=== PATIENT | female | born 1935 | race African-American/Black ===

== ENCOUNTER 2021-05-25 08:26 | Inpatient (IN) | payer OTHER, MEDICAID ==
[~2021-05-25] VITALS: Ht 157.5 cm; Wt 82.7 kg
[~2021-05-25 08:26] MED LIST: AMLO2.5T5 PO; CARV12.511 PO; LOSA100T14 PO; METF500T16 PO; MIRT-7 PO; SERT100T PO
[2021-05-25 09:28] LABS: BASO % 1 % (0-3); EOS # 0.3 x10^3/uL (0.0-0.7); EOS % 4 % (0-3); HEMATOCRIT 44.1 % (36.0-47.0); HEMOGLOBIN 13.9 g/dL (12.0-15.5); LYMPH # 0.9 x10^3/uL (1.0-4.8); LYMPH % 14 % (24-48); MEAN CORPUSCULAR HEMOGLOBIN 30 pg (25-35); MEAN CORPUSCULAR HGB CONC 32 g/dL (31-37); MEAN CORPUSCULAR VOLUME 94 fL (79-100); MONO # 0.6 x10^3/uL (0.0-1.1); MONO % 9 % (0-9); NEUT # 4.7 x10^3/uL (1.8-7.7); NEUT % 72 % (31-73); PLATELET COUNT 146 x10^3/uL (140-400); RED BLOOD COUNT 4.68 x10^6/uL (3.50-5.40); RED CELL DISTRIBUTION WIDTH 15.8 % (11.5-14.5); WHITE BLOOD COUNT 6.5 x10^3/uL (4.0-11.0)
--- NOTE | 2021-05-25 09:52 | RAD ---
EXAM: Chest, single view. HISTORY: Short of breath. COMPARISON: 02/20/2018. FINDINGS: A frontal view of the chest is obtained. There is slight diffuse increased interstitial opa city. There is no consolidation, pleural effusion or pneumothorax. There is a stable cardiac silhouet te and cardiac pacemaker defibrillator. IMPRESSION: Slight diffuse increased interstitial opacity suggesting trace congestion. Electronically signed by: Monica Weiss MD (05/25/2021 9:50 AM) [id number]
[2021-05-25 09:53] LABS: CALCIUM 8.8 mg/dL (8.5-10.1); CREATININE 0.9 mg/dL (0.6-1.0); GFR 71.8; POTASSIUM 4.6 mmol/L (3.5-5.1)
--- NOTE | 2021-05-25 09:53 | RAD ---
EXAM: Left knee, 4 views. HISTORY: Pain. COMPARISON: None. FINDINGS: 4 views of the left knee are obtained. There is severe medial compartment joint space narro wing with subchondral sclerosis and spurring. There is bony remodeling involving the medial tibial pl ateau. There is moderate lateral and patellofemoral compartment spurring. There is genu varus. There are multiple posterior joint loose bodies. There is a small joint effusion. IMPRESSION: Severe medial compartment predominant osteoarthritis of the left knee with bony remodelin g involving the medial tibial plateau, genu varus, multiple joint loose bodies and small joint effusi on. Electronically signed by: Monica Weiss MD (05/25/2021 9:51 AM) [id number]
[2021-05-25 09:58] LABS: ALBUMIN 3.5 g/dL (3.4-5.0); MAGNESIUM 1.8 mg/dL (1.8-2.4); PHOSPHORUS 2.7 mg/dL (2.6-4.7); TOTAL BILIRUBIN 0.8 mg/dL (0.2-1.0); TOTAL PROTEIN 7.1 g/dL (6.4-8.2)
--- NOTE | 2021-05-25 09:59 | RAD ---
CT Head without contrast 05/25/2021 9:22 AM Indication: Reason: Fall Comparison: None Findings: No intracranial hemorrhage is seen. No evidence of acute territorial infarct is seen. Note that CT is limited in sensitivity for acute ischemia. Age-related atrophic changes are noted. Ther e is patchy periventricular and deep white matter hypoattenuation which is nonspecific, but most comm only relates to chronic small vessel disease. No abnormal extra axial fluid collection is identified . No mass effect or midline shift is seen. No acute osseous abnormalities are seen. Impression: 1. No acute intracranial process identified 2. Age-related atrophy, and evidence of chronic small vessel disease as described CT cervical spine without contrast. 05/25/2021 9:22 AM Indication:Reason: Fall Comparison Study: None Technique: Multidetector CT imaging of the cervical spine was obtained without administration of cont rast. Findings: There is no evidence of acute fracture or alignment abnormality of the cervical spine.. Lashell tebral body heights are maintained. Disc space narrowing is seen most prominently at C3-C4 and C4-C5. The craniocervical junction and atlantoaxial articulation appear intact. There is no prevertebral so ft tissue swelling. Hypodense mass in the left thyroid gland which is partially visualized. Impression: 1.No evidence of acute fracture or alignment abnormality of the cervical spine 2. Partially visualized hypodense mass, left thyroid gland. Follow-up ultrasound recommended 3. Degenerative changes of cervical spine noted. CT DOSING PQRS STATEMENT: One or more of the following individualized dose reduction techniques were utilized for this examinat ion: 1. Automated exposure control 2. Adjustment of the mA and/or kV according to patient size 3. Use of iterative reconstruction technique Electronically signed by: Homero Madrid MD (05/25/2021 9:56 AM) [id number]
--- NOTE | 2021-05-25 10:12 | EKG ---
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
--- NOTE | 2021-05-25 10:13 | PHYS DOC ---
Past Medical History Past Medical History: Diabetes-Type II, High Cholesterol, Hypertension Additional Past Medical Histor: unable to obtain from patient Past Surgical History: Other Additional Past Surgical Histo: unable to obtain Smoking Status: Unknown if ever smoked Alcohol Use: None Drug Use: None General Adult EDM: Chief Complaint: MECHANICAL FALL HPI: HPI: Patient is a 86-year-old female presents to the emergency department reporting being found on the bathroom floor by family member this morning approximately 7 AM. Patient's granddaughter at bedside reports patient lives at alone at home, reports her uncle came by and found patient lying on bathroom floor and has assumed patient fell. Patient does not recall falling, reports left knee pain only. Denies syncopal episode, denies dizziness, denies visual disturbances or visual changes, denies auditory or visual hallucinations, denies abdominal pains, denies aches pains or discomfort to other extremities, denies head pain, denies neck pain. Denies recent fever or chills, denies chest congestion, shortness of breath, nasal congestion. Patient denies other physical complaints or physical concerns. Review of Systems: Review of Systems: 14 body systems of review of systems have been reviewed. See HPI for pertinent positives and negative responses, otherwise all other systems are negative, nonpertinent or noncontributory. Constitutional: Negative except as outlined in HPI above. Skin: Negative except as outlined in HPI above. Eyes: Negative except as outlined in HPI above. HENT: Negative except as outlined in HPI above. Respiratory: Negative except as outlined in HPI above. Cardiovascular: Negative except as outlined in HPI above. GI: Negative except as outlined in HPI above. : Negative except as outlined in HPI above. Musculoskeletal: Negative except as outlined in HPI above. Integument: Negative except as outlined in HPI above. Neurologic: Negative except as outlined in HPI above. Endocrine: Negative except as outlined in HPI above. Lymphatic: Negative except as outlined in HPI above. Psychiatric: Negative except as outlined in HPI above. Heart Score: C/O Chest Pain: No Risk Factors: Risk Factors: DM, Current or recent (<one month) smoker, HTN, HLP, family history of CAD, obesity. Risk Scores: Score 0 - 3: 2.5% MACE over next 6 weeks - Discharge Home Score 4 - 6: 20.3% MACE over next 6 weeks - Admit for Clinical Observation Score 7 - 10: 72.7% MACE over next 6 weeks - Early Invasive Strategies Allergies: Allergies: Allergies Coded Allergies Type Severity Reaction Last Updated Verified Penicillins Allergy Severe HIVES 05/25/21 Yes Physical Exam: PE: Constitutional: Well developed, well nourished, no acute distress, non-toxic appearance. 86-year-old female in no apparent distress. HENT: Normocephalic, atraumatic, bilateral external ears normal, oropharynx moist, no oral exudates, nose normal. No malocclusion, no raccoon eyes, no heredia sign, bilateral TMs intact. Patient speaking in normal voice tones. No deep tissue infectious process of the oropharynx appreciated. Eyes: PERRLA, EOMI, conjunctiva normal, no discharge. Satisfactory 6 cardinal eye movements. Neck: Normal range of motion, no tenderness, supple, no stridor. No step-offs, no tenderness to adjacent muscular structures of the cervical spine. Cardiovascular:Heart rate regular rhythm, no murmur, patient is AV paced. Current rate 62 bpm, in congruence with radial pulse. Lungs & Thorax: Coarse lung sounds all lung ware to auscultation, audible coarse lung sounds appreciated, pain to palpation of anterior thorax along sternum. No bruising or ecchymosis of the anterior thorax, no subcu air appreciated, no crepitus appreciated. Old well-healed scar over the left upper anterior chest, evidence of pacemaker device underneath skin. Abdomen: Bowel sounds normal, soft, no tenderness, no masses, no pulsatile masses. No bruising, no skin discoloration of the abdomen Skin: Warm, dry, no erythema, no rash. Back: No tenderness, no CVA tenderness. Extremities: No tenderness, no cyanosis, no clubbing, ROM intact, no edema. Except for left knee, pain to palpation of the left knee, limited range of motion related to pain, dark red ecchymotic area over patellar and lateral knee skin surfaces, no swelling appreciated, no edema appreciated, distal cap refill less than 2 seconds, 2+ dorsalis pedis/posterior tibial pulses bilaterally. Neurologic: Alert and oriented X 3, normal motor function, normal sensory function, no focal deficits noted. Psychologic: Affect normal, judgement normal, mood normal. Current Patient Data: Labs: Laboratory Tests Test 05/25/21 09:00 White Blood Count 6.5 x10^3/uL Red Blood Count 4.68 x10^6/uL Hemoglobin 13.9 g/dL Hematocrit 44.1 % Mean Corpuscular Volume 94 fL Mean Corpuscular Hemoglobin 30 pg Mean Corpuscular Hemoglobin Concent 32 g/dL Red Cell Distribution Width 15.8 % Platelet Count 146 x10^3/uL Neutrophils (%) (Auto) 72 % Lymphocytes (%) (Auto) 14 % Monocytes (%) (Auto) 9 % Eosinophils (%) (Auto) 4 % Basophils (%) (Auto) 1 % Neutrophils # (Auto) 4.7 x10^3/uL Lymphocytes # (Auto) 0.9 x10^3/uL Monocytes # (Auto) 0.6 x10^3/uL Eosinophils # (Auto) 0.3 x10^3/uL Basophils # (Auto) 0.0 x10^3/uL Sodium Level 136 mmol/L Potassium Level 4.6 mmol/L Chloride Level 100 mmol/L Carbon Dioxide Level 28 mmol/L Anion Gap 8 Blood Urea Nitrogen 20 mg/dL Creatinine 0.9 mg/dL Estimated GFR (Cockcroft-Gault) 71.8 BUN/Creatinine Ratio 22 Glucose Level 94 mg/dL Lactic Acid Level 1.0 mmol/L Calcium Level 8.8 mg/dL Phosphorus Level 2.7 mg/dL Magnesium Level 1.8 mg/dL Total Bilirubin 0.8 mg/dL Aspartate Amino Transf (AST/SGOT) 44 U/L Alanine Aminotransferase (ALT/SGPT) 49 U/L Alkaline Phosphatase 95 U/L Creatine Kinase 457 U/L Creatine Kinase MB (Mass) 6.6 ng/mL Creatine Kinase MB Relative Index 1.4 % Troponin I Quantitative 0.030 ng/mL [id number]-I-Type Natriuretic Peptide 6163 pg/mL Total Protein 7.1 g/dL Albumin 3.5 g/dL Albumin/Globulin Ratio 1.0 Laboratory Tests Test 05/25/21 09:00 White Blood Count 6.5 x10^3/uL (4.0-11.0) Red Blood Count 4.68 x10^6/uL (3.50-5.40) Hemoglobin 13.9 g/dL (12.0-15.5) Hematocrit 44.1 % (36.0-47.0) Mean Corpuscular Volume 94 fL (79-100) Mean Corpuscular Hemoglobin 30 pg (25-35) Mean Corpuscular Hemoglobin Concent 32 g/dL (31-37) Red Cell Distribution Width 15.8 % (11.5-14.5) H Platelet Count 146 x10^3/uL (140-400) Neutrophils (%) (Auto) 72 % (31-73) Lymphocytes (%) (Auto) 14 % (24-48) L Monocytes (%) (Auto) 9 % (0-9) Eosinophils (%) (Auto) 4 % (0-3) H Basophils (%) (Auto) 1 % (0-3) Neutrophils # (Auto) 4.7 x10^3/uL (1.8-7.7) Lymphocytes # (Auto) 0.9 x10^3/uL (1.0-4.8) L Monocytes # (Auto) 0.6 x10^3/uL (0.0-1.1) Eosinophils # (Auto) 0.3 x10^3/uL (0.0-0.7) Basophils # (Auto) 0.0 x10^3/uL (0.0-0.2) Lactic Acid Level 1.0 mmol/L (0.4-2.0) Troponin I Quantitative 0.030 ng/mL (0.000-0.055) Laboratory Tests 05/25/21 09:00 Vital Signs: Vital Signs Date Time Temp Pulse Resp B/P (MAP) Pulse Ox O2 Delivery O2 Flow Rate FiO2 05/25/21 08:43 97.3 75 15 166/73 (104) 94 Room Air 97.3 EKG: EKG: EKG performed at 1004 by ED nursing staff shows AV paced rhythm, heart rate 60 bpm, QTc interval 0.506, no acute STEMI, no ACS, no acute ischemia appreciated, EKG interpreted by ED attending physician Dr. Varghese. Radiology/Procedures: Radiology/Procedures: PATIENT: WILLIE ORDOÑEZCOUNT: [id number] : 1935 LOCATION: ER AGE: 86 SEX: F EXAM STATUS: PRE ER ORD. PHYSICIAN: YAMINI BASSETT APRN REASON: Short of breath PROCEDURE: KNEE LEFT 4V EXAM: Left knee, 4 views. HISTORY: Pain. COMPARISON: None. FINDINGS: 4 views of the left knee are obtained. There is severe medial compartment joint space narrowing with subchondral sclerosis and spurring. There is bony remodeling involving the medial tibial plateau. There is moderate lateral and patellofemoral compartment spurring. There is genu varus. There are multiple posterior joint loose bodies. There is a small joint effusion. IMPRESSION: Severe medial compartment predominant osteoarthritis of the left knee with bony remodeling involving the medial tibial plateau, genu varus, multiple joint loose bodies and small joint effusion. Electronically signed by: Monica Weiss MD (05/25/2021 9:51 AM) [id number] REASON: Fall PROCEDURE: CT HEAD AND CERVICAL SPINE WO CT Head without contrast 05/25/2021 9:22 AM Indication: Reason: Fall Comparison: None Findings: No intracranial hemorrhage is seen. No evidence of acute territorial infarct is seen. Note that CT is limited in sensitivity for acute ischemia. Age-related atrophic changes are noted. There is patchy periventricular and deep white matter hypoattenuation which is nonspecific, but most commonly relates to chronic small vessel disease. No abnormal extra axial fluid collection is identified. No mass effect or midline shift is seen. No acute osseous abnormalities are seen. Impression: 1. No acute intracranial process identified 2. Age-related atrophy, and evidence of chronic small vessel disease as described CT cervical spine without contrast. 05/25/2021 9:22 AM Indication:Reason: Fall Comparison Study: None Technique: Multidetector CT imaging of the cervical spine was obtained without administration of contrast. Findings: There is no evidence of acute fracture or alignment abnormality of the cervical spine.. Vertebral body heights are maintained. Disc space narrowing is seen most prominently at C3-C4 and C4-C5. The craniocervical junction and atlantoaxial articulation appear intact. There is no prevertebral soft tissue swelling. Hypodense mass in the left thyroid gland which is partially visua lized. Impression: 1.No evidence of acute fracture or alignment abnormality of the cervical spine 2. Partially visualized hypodense mass, left thyroid gland. Follow-up ultrasound recommended 3. Degenerative changes of cervical spine noted. CT DOSING PQRS STATEMENT: One or more of the following individualized dose reduction techniques were utilized for this examination: 1. Automated exposure control 2. Adjustment of the mA and/or kV according to patient size 3. Use of iterative reconstruction technique Electronically signed by: Homero Madrid MD (05/25/2021 9:56 AM) [id number] REASON: Short of breath PROCEDURE: CHEST AP ONLY EXAM: Chest, single view. HISTORY: Short of breath. COMPARISON: 02/20/2018. FINDINGS: A frontal view of the chest is obtained. There is slight diffuse increased interstitial opacity. There is no consolidation, pleural effusion or pneumothorax. There is a stable cardiac silhouette and cardiac pacemaker defibrillator. IMPRESSION: Slight diffuse increased interstitial opacity suggesting trace congestion. Electronically signed by: Monica Weiss MD (05/25/2021 9:50 AM) [id number] Course & Med Decision Making: Course & Med Decision Making Pertinent Labs and Imaging studies reviewed. (See chart for details) 86-year-old female, vital signs reviewed, presents to the emergency department concerning being found on the bathroom floor at home. Is uncertain if a fall was related to a mechanical trip or syncopal episode as patient does not recall event, it is unsure how long patient was on bathroom floor before found by family, the patient does live alone at home, patient only complained of left knee pain however physical examination suspicious for pulmonary congestion vers us congestive heart failure exacerbation, patient does have a history of type 2 diabetes and ischemic cardiomyopathy with an AV pacemaker defibrillator. Will order CBC, CMP, cardiac oxygen enzymes, troponin I, BNP pro, CK to rule out rhabdomyolysis, EKG, chest x-ray, left knee x-ray, pending ED work-up, plan to admit patient for syncope versus mechanical fall. Patient's cardiac enzymes and EKG nonconcerning, patient's abnormal labs to include elevated proBNP at 6163, chest x-ray suggestive of pulmonary congestion, however patient is not hypoxic, is in no respiratory distress, not concerning for an acute exacerbation of COPD, CHF or pulmonary edema. Patient's left knee x-ray concerning for severe arthritis and degenerative changes, there is no fracture. Discussed findings with patient and patient's family members at bedside, recommended admission for syncope versus mechanical fall, elevated proBNP suggestive of CHF, patient and patient's family members amenable to ED planning and admission. Covid testing and urinalysis assay pending at this time. Patient's primary care provider is Dr. Calzada, primary application release manager Dr. Perez, Called and discussed patient case and ED work-up with inpatient management physician Dr. Ortiz who agrees patient case warrants admission to the telem etry unit, requested cardiology consult, will see patient in emergency department for further orders and ongoing inpatient hospital health care management. Patient is waiting for hospital bed assignment by nursing ice house supervisor at this time. Dragon Disclaimer: Dragon Disclaimer: This electronic medical record was generated, in whole or in part, using a voice recognition dictation system. Departure Departure Impression: Primary Impression: Syncope Qualified Codes: R55 - Syncope and collapse Additional Impressions: Fall Qualified Codes: W19.XXXA - Unspecified fall, initial encounter Elevated brain natriuretic peptide (BNP) level Congestive heart failure Qualified Codes: I50.9 - Heart failure, unspecified Disposition: ADMITTED INPATIENT Admitting Physician: TIFFANY (Admit to Dr. Ortiz on telemetry unit, consult cardiology) Condition: STABLE Referrals: Cyril CALZADA MD (PCP) YAMINI BASSETT APRN May 25, 2021 10:13
[2021-05-25 10:42] LABS: BILIRUBIN,URINE MODERATE (NEG); CLARITY,URINE CLOUDY; COLOR,URINE AMBER; NITRITE,URINE NEGATIVE (NEG); PROTEIN,URINE 30 mg/dL (NEG-TRACE)
[2021-05-25 11:06] LABS: BACTERIA,URINE FEW /HPF (0-FEW); RBC,URINE 0 /HPF (0-2)
[2021-05-25] MEDS ORDERED: ATOR40TA59 PO (11:16)
[2021-05-25] MEDS ORDERED: CARV25TA2 PO (11:16)
[2021-05-25] MEDS ORDERED: CAND4TAB7 PO (11:16)
[2021-05-25] MEDS ORDERED: METF500T16 PO (11:16)
--- NOTE | 2021-05-25 11:57 | PDOC2 ---
MORENO CARRASCO CAITIE 05/25/21 1157: CARDIAC CONSULT DATE OF CONSULT Date of Consult DATE: 05/25/21 TIME: 11:55 REASON FOR CONSULT Reason for Consult: CHF REFERRING PHYSICIAN Referring Physician: Alpesh Pettit APRN SOURCE Source: Chart review, Patient HISTORY OF PRESENT ILLNESS HISTORY OF PRESENT ILLNESS This is an 86 yo female who presented after being found down on the floor in the bathroom by family. Patient lives at home alone. Son reportedly came by to check on her and found her lying down on the bathroom floor. Patient reports she was weak and feel. Denies any precipitating dizziness or lightheadedness. Repots that she was down for maybe 15 minutes or so. No complaints of chest pain, palpi tations, diaphoresis, or shortness of breath. No recent illness or fevers. 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 moist/pink Lungs: diminished bases Heart: Regular rate Abdomen: Soft, No tenderness, Other (2/6 systolic murmur to LLS border) Extremities: No cyanosis, trace bilateral LE edema Skin: No significant lesion Neuro: Normal speech, Sensation intact Psych/Mental Status: Mental status NL, Mood NL MUSCULOSKELETAL: Osteoarthritic changes both hands VITALS/I&O VITALS/I&O: Vital Signs Date Time Temp Pulse Resp B/P (MAP) Pulse Ox O2 Delivery O2 Flow Rate FiO2 05/25/21 10:35 60 15 121/64 (83) 97 Room Air 05/25/21 08:43 97.3 97.3 LABS Lab: Laboratory Tests Test 05/25/21 09:00 05/25/21 10:28 05/25/21 10:30 White Blood Count 6.5 x10^3/uL (4.0-11.0) Red Blood Count 4.68 x10^6/uL (3.50-5.40) Hemoglobin 13.9 g/dL (12.0-15.5) Hematocrit 44.1 % (36.0-47.0) Mean Corpuscular Volume 94 fL (79-100) Mean Corpuscular Hemoglobin 30 pg (25-35) Mean Corpuscular Hemoglobin Concent 32 g/dL (31-37) Red Cell Distribution Width 15.8 % (11.5-14.5) H Platelet Count 146 x10^3/uL (140-400) Neutrophils (%) (Auto) 72 % (31-73) Lymphocytes (%) (Auto) 14 % (24-48) L Monocytes (%) (Auto) 9 % (0-9) Eosinophils (%) (Auto) 4 % (0-3) H Basophils (%) (Auto) 1 % (0-3) Neutrophils # (Auto) 4.7 x10^3/uL (1.8-7.7) Lymphocytes # (Auto) 0.9 x10^3/uL (1.0-4.8) L Monocytes # (Auto) 0.6 x10^3/uL (0.0-1.1) Eosinophils # (Auto) 0.3 x10^3/uL (0.0-0.7) Basophils # (Auto) 0.0 x10^3/uL (0.0-0.2) Sodium Level 136 mmol/L (136-145) Potassium Level 4.6 mmol/L (3.5-5.1) Chloride Level 100 mmol/L (98-107) Carbon Dioxide Level 28 mmol/L (21-32) Anion Gap 8 (6-14) Blood Urea Nitrogen 20 mg/dL (7-20) Creatinine 0.9 mg/dL (0.6-1.0) Estimated GFR (Cockcroft-Gault) 71.8 BUN/Creatinine Ratio 22 (6-20) H Glucose Level 94 mg/dL (70-99) Lactic Acid Level 1.0 mmol/L (0.4-2.0) Calcium Level 8.8 mg/dL (8.5-10.1) Phosphorus Level 2.7 mg/dL (2.6-4.7) Magnesium Level 1.8 mg/dL (1.8-2.4) Total Bilirubin 0.8 mg/dL (0.2-1.0) Aspartate Amino Transferase (AST) 44 U/L (15-37) H Alanine Aminotransferase (ALT) 49 U/L (14-59) Alkaline Phosphatase 95 U/L (46-116) Creatine Kinase 457 U/L (26-192) H Creatine Kinase MB (Mass) 6.6 ng/mL (0.0-3.6) H Creatine Kinase MB Relative Index 1.4 % (0-4) Troponin I Quantitative 0.030 ng/mL (0.000-0.055) HQ-Zum-T-Type Natriuretic Peptide 6163 pg/mL (0-449) H Total Protein 7.1 g/dL (6.4-8.2) Albumin 3.5 g/dL (3.4-5.0) Albumin/Globulin Ratio 1.0 (1.0-1.7) Urine Collection Type Unknown Urine Color [place] Urine Clarity Cloudy Urine pH 5.0 (<5.0-8.0) Urine Specific [place] >=1.030 (1.000-1.030) Urine Protein 30 mg/dL (NEG-TRACE) Urine Glucose (UA) Negative mg/dL (NEG) Urine Ketones (Stick) 15 mg/dL (NEG) Urine Blood Negative (NEG) Urine Nitrite Negative (NEG) Urine Bilirubin Moderate (NEG) Urine Urobilinogen Dipstick 1.0 mg/dL (0.2 mg/dL) Urine Leukocyte Esterase Small (NEG) Urine RBC 0 /HPF (0-2) Urine WBC 1-4 /HPF (0-4) Urine Squamous Epithelial Cells Mod /LPF Urine Bacteria Few /HPF (0-FEW) Urine Mucus Slight /LPF SARS-CoV-2 Antigen (Rapid) Negative (NEGATIVE) Laboratory Tests 05/25/21 09:00 Laboratory Tests 05/25/21 09:00 ECHOCARDIOGRAM ECHOCARDIOGRAM 02/21/18 - 2-D + DOPPLER ECHOCARDIOGRAM Interpretation Summary Normal LV size and wall thickness. Borderline normal LV systolic function, EF 50% Device leads in right-sided chambers HEART CATH HEART CATH 10/10/14: Cath - Nonobstructive CAD. 30% stenosis in the proximal LAD as well as the proximal diagonal vessel. Also 30% stenosis in the OM 1 system as well. Left dominant circulation with the PDA arising from the left circumflex artery. ASSESSMENT/PLAN ASSESSMENT/PLAN 1. Fall; found down by family. Reportedly due to weakness. Denies any LOC. CT head without acute changes 2. Mild acute on diastolic systolic CHF 2. Hx of NICM/LBBB/VT s/p ([employer]) PLATE SENSITIZER-d; recent device check with normal function. OptiVol level indicating fluid overload. No notation of diuretic therapy initiation per review of [facility] chart. Most recent echo in 2018 with LV recovery with an EF of 50% as noted above. 3. HTN: controlled 4. DM2 5. Mild rhabdomyolysis Recommendations Device interrogation to r/o contributing arrhythmias and noted OptiVol reading Orthos Echocardiogram PT/OT Diuresis as warranted Supportive care MATTIE DE LEÓN MD 05/26/21 1156: CARDIAC CONSULT ASSESSMENT/PLAN ASSESSMENT/PLAN Patient seen and examined 05/25/2021. Agree with GROUP PROGRAM MANAGER's assessment and plan. For most probably mechanical. Patient denied any loss of consciousness as such. 2D echo showed normal LV systolic function. Agree with PLATE SENSITIZER-D to rule out malfunction although clinical suspicion is low Mild acute on chronic diastolic heart failure better compensated Thank you for your consultation MORENO CARRASCO APRN May 25, 2021 11:57 MATTIE DE LEÓN MD May 26, 2021 11:56
--- NOTE | 2021-05-25 12:21 | PDOC1 ---
History and Physical Date of Admission Date of Admission DATE: 05/25/21 TIME: 12:07 Identification/Chief Complaint Chief Complaint Syncope Source Source: Patient History of Present Illness History of Present Illness Patient is a 86-year-old female with past medical history HTN, DM2, HLD, presents to the ED for evaluation after syncopal episode this morning at home. She lives alone and was found lying on the bathroom floor this morning by family member. She reports a syncopal episode this morning and yesterday. She denies any preceding chest pain, shortness of breath, dizziness, or lightheadedness. She does admit to loss of consciousness, but is unsure how long she was unconscious. At the time of my evaluation she admits to some musculoskeletal pain, but denies any chest pain. Labs on admission showed BNP 6063, troponin 0.030, BUN 20, creatinine 0.9, AST 44, ALT 49. Chest x-ray suggestive of trace congestion. Left knee x-ray showed severe medial compartment predominant osteoarthritis of the left knee with bony remodeling involving the medial tibial plateau, genu varus, multiple joint loose bodies and small joint effusion CT head showed no acute intracranial process, age-related atrophy, and evidence of chronic small vessel disease. We will admit patient for further medical management. Past Medical History Cardiovascular: CHF, HTN, Hyperlipidemia, Other Psych: Anxiety Musculoskeletal: Osteoarthritis Endocrine: Diabetes Past Surgical History Past Surgical History: Pacemaker, Hysterectomy Family History Family History: Coronary Artery Disease, Other (noncontributory to age) Social History Smoke: Quit ALCOHOL: none Drugs: None Current Problem List Problem List Problems Medical Problems: (1) Congestive heart failure Status: Acute (2) Elevated brain natriuretic peptide (BNP) level Status: Acute (3) Fall Status: Acute (4) Syncope Status: Acute Current Medications Current Medications Active Scripts Active Reported Carvedilol 25 Mg Tablet 25 Mg PO BIDWMEALS Metformin Hcl 500 Mg Tablet 500 Mg PO DAILY Atorvastatin Calcium 40 Mg Tablet 40 Mg PO HS Atacand (Candesartan Cilexetil) 4 Mg Tablet 8 Mg PO DAILY Zoloft (Sertraline Hcl) 100 Mg Tablet 1 Tab PO DAILY Allergies Allergies: Coded Allergies: Penicillins (Verified Allergy, Severe, HIVES, 05/25/21) ROS Review of System GENERAL: Generalized muscle aches. No history of weight change, weakness or fevers. SKIN: No bruising, hair changes or rashes. EYES: No blurred, double or loss of vision. NOSE AND THROAT: No history of nosebleeds, hoarseness or sore throat. HEART: Denies chest pain, denies palpitations. LUNGS: Denies cough, hemoptysis, wheezing or shortness of breath. GASTROINTESTINAL: Denies nausea, vomiting, abdominal pain. GENITOURINARY: Denies dysuria, frequency, urgency, hematuria. NEUROLOGIC: Denies history of numbness, tingling, tremor or weakness. PSYCHIATRIC: Denies anxiety, denies depression. ENDOCRINE: No history of heat or cold intolerance, polyuria or polydipsia. EXTREMITIES: Denies muscle weakness, joint pain, pain on walking or stiffness. Physical Exam Physical Exam General: Alert, Oriented X3, Cooperative, No acute distress HEENT: PERRLA, EOMI Lungs: Clear to auscultation, Normal air movement Heart: Pacemaker to left chest wall. RRR, no murmurs Cardiovascular: S1, S2 Abdomen: Normal bowel sounds, Soft, No tenderness Extremities: No clubbing, No cyanosis Skin: No rashes, No significant lesion Neuro: Normal speech, Normal tone, Sensation intact Psych/Mental Status: Mental status NL, Mood NL Vitals Vitals Vital Signs Date Time Temp Pulse Resp B/P (MAP) Pulse Ox O2 Delivery O2 Flow Rate FiO2 05/25/21 10:35 60 15 121/64 (83) 97 Room Air 05/25/21 08:43 97.3 97.3 Labs Labs Laboratory Tests Test 05/25/21 09:00 05/25/21 10:28 05/25/21 10:30 White Blood Count 6.5 x10^3/uL (4.0-11.0) Red Blood Count 4.68 x10^6/uL (3.50-5.40) Hemoglobin 13.9 g/dL (12.0-15.5) Hematocrit 44.1 % (36.0-47.0) Mean Corpuscular Volume 94 fL (79-100) Mean Corpuscular Hemoglobin 30 pg (25-35) Mean Corpuscular Hemoglobin Concent 32 g/dL (31-37) Red Cell Distribution Width 15.8 % (11.5-14.5) Platelet Count 146 x10^3/uL (140-400) Neutrophils (%) (Auto) 72 % (31-73) Lymphocytes (%) (Auto) 14 % (24-48) Monocytes (%) (Auto) 9 % (0-9) Eosinophils (%) (Auto) 4 % (0-3) Basophils (%) (Auto) 1 % (0-3) Neutrophils # (Auto) 4.7 x10^3/uL (1.8-7.7) Lymphocytes # (Auto) 0.9 x10^3/uL (1.0-4.8) Monocytes # (Auto) 0.6 x10^3/uL (0.0-1.1) Eosinophils # (Auto) 0.3 x10^3/uL (0.0-0.7) Basophils # (Auto) 0.0 x10^3/uL (0.0-0.2) Sodium Level 136 mmol/L (136-145) Potassium Level 4.6 mmol/L (3.5-5.1) Chloride Level 100 mmol/L (98-107) Carbon Dioxide Level 28 mmol/L (21-32) Anion Gap 8 (6-14) Blood Urea Nitrogen 20 mg/dL (7-20) Creatinine 0.9 mg/dL (0.6-1.0) Estimated GFR (Cockcroft-Gault) 71.8 BUN/Creatinine Ratio 22 (6-20) Glucose Level 94 mg/dL (70-99) Lactic Acid Level 1.0 mmol/L (0.4-2.0) Calcium Level 8.8 mg/dL (8.5-10.1) Phosphorus Level 2.7 mg/dL (2.6-4.7) Magnesium Level 1.8 mg/dL (1.8-2.4) Total Bilirubin 0.8 mg/dL (0.2-1.0) Aspartate Amino Transf (AST/SGOT) 44 U/L (15-37) Alanine Aminotransferase (ALT/SGPT) 49 U/L (14-59) Alkaline Phosphatase 95 U/L (46-116) Creatine Kinase 457 U/L (26-192) Creatine Kinase MB (Mass) 6.6 ng/mL (0.0-3.6) Creatine Kinase MB Relative Index 1.4 % (0-4) Troponin I Quantitative 0.030 ng/mL (0.000-0.055) VQ-Sqa-Q-Type Natriuretic Peptide 6163 pg/mL (0-449) Total Protein 7.1 g/dL (6.4-8.2) Albumin 3.5 g/dL (3.4-5.0) Albumin/Globulin Ratio 1.0 (1.0-1.7) Urine Collection Type Unknown Urine Color Emili Urine Clarity Cloudy Urine pH 5.0 (<5.0-8.0) Urine Specific [place] >=1.030 (1.000-1.030) Urine Protein 30 mg/dL (NEG-TRACE) Urine Glucose (UA) Negative mg/dL (NEG) Urine Ketones (Stick) 15 mg/dL (NEG) Urine Blood Negative (NEG) Urine Nitrite Negative (NEG) Urine Bilirubin Moderate (NEG) Urine Urobilinogen Dipstick 1.0 mg/dL (0.2 mg/dL) Urine Leukocyte Esterase Small (NEG) Urine RBC 0 /HPF (0-2) Urine WBC 1-4 /HPF (0-4) Urine Squamous Epithelial Cells Mod /LPF Urine Bacteria Few /HPF (0-FEW) Urine Mucus Slight /LPF SARS-CoV-2 Antigen (Rapid) Negative (NEGATIVE) Laboratory Tests Test 05/25/21 09:00 05/25/21 10:28 05/25/21 10:30 White Blood Count 6.5 x10^3/uL (4.0-11.0) Red Blood Count 4.68 x10^6/uL (3.50-5.40) Hemoglobin 13.9 g/dL (12.0-15.5) Hematocrit 44.1 % (36.0-47.0) Mean Corpuscular Volume 94 fL (79-100) Mean Corpuscular Hemoglobin 30 pg (25-35) Mean Corpuscular Hemoglobin Concent 32 g/dL (31-37) Red Cell Distribution Width 15.8 % (11.5-14.5) Platelet Count 146 x10^3/uL (140-400) Neutrophils (%) (Auto) 72 % (31-73) Lymphocytes (%) (Auto) 14 % (24-48) Monocytes (%) (Auto) 9 % (0-9) Eosinophils (%) (Auto) 4 % (0-3) Basophils (%) (Auto) 1 % (0-3) Neutrophils # (Auto) 4.7 x10^3/uL (1.8-7.7) Lymphocytes # (Auto) 0.9 x10^3/uL (1.0-4.8) Monocytes # (Auto) 0.6 x10^3/uL (0.0-1.1) Eosinophils # (Auto) 0.3 x10^3/uL (0.0-0.7) Basophils # (Auto) 0.0 x10^3/uL (0.0-0.2) Sodium Level 136 mmol/L (136-145) Potassium Level 4.6 mmol/L (3.5-5.1) Chloride Level 100 mmol/L (98-107) Carbon Dioxide Level 28 mmol/L (21-32) Anion Gap 8 (6-14) Blood Urea Nitrogen 20 mg/dL (7-20) Creatinine 0.9 mg/dL (0.6-1.0) Estimated GFR (Cockcroft-Gault) 71.8 BUN/Creatinine Ratio 22 (6-20) Glucose Level 94 mg/dL (70-99) Lactic Acid Level 1.0 mmol/L (0.4-2.0) Calcium Level 8.8 mg/dL (8.5-10.1) Phosphorus Level 2.7 mg/dL (2.6-4.7) Magnesium Level 1.8 mg/dL (1.8-2.4) Total Bilirubin 0.8 mg/dL (0.2-1.0) Aspartate Amino Transf (AST/SGOT) 44 U/L (15-37) Alanine Aminotransferase (ALT/SGPT) 49 U/L (14-59) Alkaline Phosphatase 95 U/L (46-116) Creatine Kinase 457 U/L (26-192) Creatine Kinase MB (Mass) 6.6 ng/mL (0.0-3.6) Creatine Kinase MB Relative Index 1.4 % (0-4) Troponin I Quantitative 0.030 ng/mL (0.000-0.055) VO-Fdh-L-Type Natriuretic Peptide 6163 pg/mL (0-449) Total Protein 7.1 g/dL (6.4-8.2) Albumin 3.5 g/dL (3.4-5.0) Albumin/Globulin Ratio 1.0 (1.0-1.7) Urine Collection Type Unknown Urine Color Emili Urine Clarity Cloudy Urine pH 5.0 (<5.0-8.0) Urine Specific [place] >=1.030 (1.000-1.030) Urine Protein 30 mg/dL (NEG-TRACE) Urine Glucose (UA) Negative mg/dL (NEG) Urine Ketones (Stick) 15 mg/dL (NEG) Urine Blood Negative (NEG) Urine Nitrite Negative (NEG) Urine Bilirubin Moderate (NEG) Urine Urobilinogen Dipstick 1.0 mg/dL (0.2 mg/dL) Urine Leukocyte Esterase Small (NEG) Urine RBC 0 /HPF (0-2) Urine WBC 1-4 /HPF (0-4) Urine Squamous Epithelial Cells Mod /LPF Urine Bacteria Few /HPF (0-FEW) Urine Mucus Slight /LPF SARS-CoV-2 Antigen (Rapid) Negative (NEGATIVE) Images Images [facility] [address] [place] [address] IMAGING REPORT Signed PATIENT: WILLIE ORDOÑEZCOUNT: [id number] : 1935 LOCATION: ER AGE: 86 SEX: F EXAM STATUS: PRE ER ORD. PHYSICIAN: YAMINI BASSETT APRN REASON: Short of breath PROCEDURE: CHEST AP ONLY EXAM: Chest, single view. HISTORY: Short of breath. COMPARISON: 02/20/2018. FINDINGS: A frontal view of the chest is obtained. There is slight diffuse increased interstitial opacity. There is no consolidation, pleural effusion or pneumothorax. There is a stable cardiac silhouette and cardiac pacemaker defibrillator. IMPRESSION: Slight diffuse increased interstitial opacity suggesting trace congestion. IMAGING REPORT Signed PATIENT: WILLIE ORDOÑEZCOUNT: [id number] : 1935 LOCATION: ER AGE: 86 SEX: F EXAM STATUS: PRE ER ORD. PHYSICIAN: YAMINI BASSETT APRN REASON: Short of breath PROCEDURE: CHEST AP ONLY EXAM: Chest, single view. HISTORY: Short of breath. COMPARISON: 02/20/2018. FINDINGS: A frontal view of the chest is obtained. There is slight diffuse increased interstitial opacity. There is no consolidation, pleural effusion or pneumothorax. There is a stable cardiac silhouette and cardiac pacemaker defibrillator. IMPRESSION: Slight diffuse increased interstitial opacity suggesting trace congestion. IMAGING REPORT Signed PATIENT: WILLIE ORDOÑEZCOUNT: [id number] : 1935 LOCATION: ER AGE: 86 SEX: F EXAM STATUS: PRE ER ORD. PHYSICIAN: YAMINI BASSETT APRN REASON: Fall PROCEDURE: CT HEAD AND CERVICAL SPINE WO CT Head without contrast 05/25/2021 9:22 AM Indication: Reason: Fall Comparison: None Findings: No intracranial hemorrhage is seen. No evidence of acute territorial infarct is seen. Note that CT is limited in sensitivity for acute ischemia. Age-related atrophic changes are noted. There is patchy periventricular and deep white matter hypoattenuation which is nonspecific, but most commonly relates to chronic small vessel disease. No abnormal extra axial fluid collection is identified. No mass effect or midline shift is seen. No acute osseous abnormalities are seen. Impression: 1. No acute intracranial process identified 2. Age-related atrophy, and evidence of chronic small vessel disease as described CT cervical spine without contrast. 05/25/2021 9:22 AM Indication:Reason: Fall Comparison Study: None Technique: Multidetector CT imaging of the cervical spine was obtained without administration of contrast. Findings: There is no evidence of acute fracture or alignment abnormality of the cervical spine.. Vertebral body heights are maintained. Disc space narrowing is seen most prominently at C3-C4 and C4-C5. The craniocervical junction and atlantoaxial articulation appear intact. There is no prevertebral soft tissue swelling. Hypodense mass in the left thyroid gland which is partially visualized. Impression: 1.No evidence of acute fracture or alignment abnormality of the cervical spine 2. Partially visualized hypodense mass, left thyroid gland. Follow-up ultrasound recommended 3. Degenerative changes of cervical spine noted. VTE Prophylaxis Ordered VTE Prophylaxis Devices: No VTE Pharmacological Prophylaxi: Yes Assessment/Plan Assessment/Plan Syncope CHF HTN DM2 Osteoarthritis Plan: Consultation placed to cardiology She denies any prior knowledge of heart failure, but her home medications would suggest otherwise. Echocardiogram pending. We will obtain orthostatic vitals Telemetry Fall precautions PT/OT Resume home medications FEN - Cardiac diet PPX - Heparin FULL CODE Dispo - inpatient for above Patient names her son (Solis Ordoñez) as surrogate decision-maker Justifications for Admission Other Justification MAAL CONDE MD May 25, 2021 12:21
[2021-05-25] MEDS ORDERED: traMADol 50 MG TABLET PO PRN (12:30)
[2021-05-25] MEDS ORDERED: ONDANSETRON PF 4 MG/2 ML VIAL. IVP PRN (12:30)
[2021-05-25] MEDS ORDERED: ZOLPIDEM 5 MG TABLET. PO PRN (12:30)
[2021-05-25] MEDS ORDERED: ACETAMINOPHEN 325 MG TABLET. PO PRN (12:30)
[2021-05-25] MEDS ORDERED: CALCIUM CARBONATE 500 MG TAB.CHEW PO PRN (12:30)
[2021-05-25] MEDS ORDERED: DEXTROSE 50% 25 GM / 50ML DISP.SYRIN. IV PRN (12:30)
[2021-05-25] MEDS ORDERED: hydrALAZINE 20 MG/ML VIAL. IVP PRN (12:30)
[2021-05-25] MEDS ORDERED: MAG HYDROX/ALUMINUM HYD/SIMETH 30 ML ORAL.SUSP PO PRN (12:30)
[2021-05-25] MEDS ORDERED: MAGNESIUM HYDROXIDE 2,400 MG/30 ML ORAL.SUSP. PO PRN (12:30)
--- NOTE | 2021-05-25 14:41 | CARD ---
MR#: [id number] Date of Study: 05/25/2021 Ordering Physician: MALA CONDE, Referring Physician: MALA CONDE, Tech: Maria D Humphrey [facility] APPROVED REPORT EXAM: Two-dimensional and M-mode echocardiogram with Doppler and color Doppler. Other Information Quality : AverageHR: 75bpm INDICATION Syncope Congestive Heart Failure Surgery/Intervention Pacemaker: Date: 2012 2D DIMENSIONS Left Atrium(2D)3.3 (1.6-4.0cm)IVSd1.2 (0.7-1.1cm) Aortic Root(2D)3.1 (2.0-3.7cm)LVDd4.3 (3.9-5.9cm) LVOT Diameter2.0 (1.8-2.4cm)PWd1.1 (0.7-1.1cm) LVDs2.1 (2.5-4.0cm)FS (%) 50.1 % SV66.1 mlLVEF(%)61.7 (>50%) Aortic Valve AoV Peak Ayo.155.9cm/sAoV VTI28.6cm AO Peak GR.9.7mmHgLVOT VTI 15.45cm AO Mean GR.5mmHgAI P 1/2 [id number] Mitral Valve MV E Wbauinhm25.7cm/sMV E Peak Gr.3mmHg MV DECEL [id number] A Xcsqbbte80.8cm/s MV E Mean Gr.1mmHgE/A Ratio0.6 TDI Lateral E' P. V7.27cm/sMedial E' P. V4.63cm/s E/Lateral E'7.0E/Medial E'11.0 Tricuspid Valve TR P. Ufqdxzts797rn/sRAP FATNTUVG7ggVg TR Peak Gr.05egSpMROT03vqKf Pulmonary Vein S1 Boutjsoj99.9cm/sS2 Lnvhryzg58.16cm/s D2 Sfrsajeq02.2cm/s LEFT VENTRICLE The left ventricle is normal size. There is mild concentric left ventricular hypertrophy. The left ve ntricular systolic function is normal and the ejection fraction is within normal range. The Ejection Fraction is 50-55%. Septal motion consistent with conduction abnormality. Otherwise, grossly normal w all motion. Transmitral Doppler flow pattern is Grade I-abnormal relaxation pattern. RIGHT VENTRICLE The right ventricle is borderline dilated. There is normal right ventricular wall thickness. The righ t ventricular systolic function is normal. There is a pacemaker lead in the right ventricle. ATRIA The left atrium size is normal. The right atrium size is normal. The interatrial septum is intact wit h no evidence for an atrial septal defect or patent foramen ovale as noted on 2-D or Doppler imaging. AORTIC VALVE The aortic valve is normal in structure and function. Doppler and Color Flow revealed trace aortic re gurgitation. There is no significant aortic valvular stenosis. Calculated aortic valve area is 1.95 c m2 with maximum pressure gradient of 10 mmHg and mean pressure gradient of 5 mmHg. MITRAL VALVE The mitral valve is normal in structure and function. There is no evidence of mitral valve prolapse. There is no mitral valve stenosis. Doppler and Color-flow revealed trace mitral regurgitation. TRICUSPID VALVE The tricuspid valve is normal in structure and function. Doppler and Color Flow revealed trace tricus pid regurgitation with an estimated PAP of 55 mmHg. There is no tricuspid valve stenosis. PULMONIC VALVE The pulmonic valve is not well visualized. Doppler and Color Flow revealed no pulmonic valvular regur gitation. There is no pulmonic valvular stenosis. GREAT VESSELS The aortic root is normal in size. The ascending aorta is mildly dilated measuring 3.4 cm. The IVC wa s not visualized. PERICARDIAL EFFUSION There is no evidence of significant pericardial effusion. Critical Notification Critical Value: No <Conclusion> The left ventricular systolic function is normal and the ejection fraction is within normal range. Th e Ejection Fraction is 50-55%. Septal motion consistent with conduction abnormality. Otherwise, grossly normal wall motion. There is a pacemaker lead in the right ventricle. Doppler and Color Flow revealed trace tricuspid regurgitation with an estimated PAP of 55 mmHg. The ascending aorta is mildly dilated measuring 3.4 cm. Signed by : Vinny Hernandez, Electronically Approved : 05/25/2021 14:40:46
[2021-05-25 14:45] VITALS: BP 115/73
[2021-05-25] MEDS: INSULIN LISPRO 300 UNITS/3 ML VIAL. SQ SCH (17:00)
[2021-05-25] MEDS: CARVEDILOL 12.5 MG TABLET. PO SCH (18:39)
[2021-05-25 19:17] VITALS: BP 99/53
[2021-05-25] MEDS: ATORVASTATIN CALCIUM 40 MG TABLET. PO SCH (21:34)
[2021-05-25] MEDS: HEPARIN for SUB-Q USE 5,000 UNIT/ML VIAL. SQ SCH (21:36)
[2021-05-25 22:51] VITALS: BP 116/60
[2021-05-26 02:49] VITALS: BP 131/62
[2021-05-26 07:00] VITALS: BP 142/63
[2021-05-26] MEDS: INSULIN LISPRO 300 UNITS/3 ML VIAL. SQ SCH ×3 (08:00→17:00)
[2021-05-26] MEDS ORDERED: FUROSEMIDE 40 MG/4 ML VIAL. IVP ONE (08:30)
[2021-05-26] MEDS: SERTRALINE 50 MG TABLET. PO SCH (09:18)
[2021-05-26] MEDS: CARVEDILOL 12.5 MG TABLET. PO SCH ×2 (09:18→17:11)
[2021-05-26] MEDS: LOSARTAN POTASSIUM 50 MG TABLET. PO SCH (09:18)
[2021-05-26] MEDS: HEPARIN for SUB-Q USE 5,000 UNIT/ML VIAL. SQ SCH ×2 (09:28→20:08)
[2021-05-26 11:08] VITALS: BP 127/72
--- NOTE | 2021-05-26 11:38 | PDOC ---
PULMONARY PROGRESS NOTES DATE: 05/26/21 TIME: 11:37 Vitals Vital Signs Date Time Temp Pulse Resp B/P (MAP) Pulse Ox O2 Delivery O2 Flow Rate FiO2 05/26/21 11:08 98.5 71 20 127/72 (90) 96 Room Air 98.5 Labs Laboratory Tests Test 05/25/21 09:00 05/25/21 10:28 05/25/21 10:30 05/25/21 16:58 White Blood Count 6.5 x10^3/uL (4.0-11.0) Red Blood Count 4.68 x10^6/uL (3.50-5.40) Hemoglobin 13.9 g/dL (12.0-15.5) Hematocrit 44.1 % (36.0-47.0) Mean Corpuscular Volume 94 fL (79-100) Mean Corpuscular Hemoglobin 30 pg (25-35) Mean Corpuscular Hemoglobin Concent 32 g/dL (31-37) Red Cell Distribution Width 15.8 % (11.5-14.5) Platelet Count 146 x10^3/uL (140-400) Neutrophils (%) (Auto) 72 % (31-73) Lymphocytes (%) (Auto) 14 % (24-48) Monocytes (%) (Auto) 9 % (0-9) Eosinophils (%) (Auto) 4 % (0-3) Basophils (%) (Auto) 1 % (0-3) Neutrophils # (Auto) 4.7 x10^3/uL (1.8-7.7) Lymphocytes # (Auto) 0.9 x10^3/uL (1.0-4.8) Monocytes # (Auto) 0.6 x10^3/uL (0.0-1.1) Eosinophils # (Auto) 0.3 x10^3/uL (0.0-0.7) Basophils # (Auto) 0.0 x10^3/uL (0.0-0.2) Sodium Level 136 mmol/L (136-145) Potassium Level 4.6 mmol/L (3.5-5.1) Chloride Level 100 mmol/L (98-107) Carbon Dioxide Level 28 mmol/L (21-32) Anion Gap 8 (6-14) Blood Urea Nitrogen 20 mg/dL (7-20) Creatinine 0.9 mg/dL (0.6-1.0) Estimated GFR (Cockcroft-Gault) 71.8 BUN/Creatinine Ratio 22 (6-20) Glucose Level 94 mg/dL (70-99) Lactic Acid Level 1.0 mmol/L (0.4-2.0) Calcium Level 8.8 mg/dL (8.5-10.1) Phosphorus Level 2.7 mg/dL (2.6-4.7) Magnesium Level 1.8 mg/dL (1.8-2.4) Total Bilirubin 0.8 mg/dL (0.2-1.0) Aspartate Amino Transf (AST/SGOT) 44 U/L (15-37) Alanine Aminotransferase (ALT/SGPT) 49 U/L (14-59) Alkaline Phosphatase 95 U/L (46-116) Creatine Kinase 457 U/L (26-192) Creatine Kinase MB (Mass) 6.6 ng/mL (0.0-3.6) Creatine Kinase MB Relative Index 1.4 % (0-4) Troponin I Quantitative 0.030 ng/mL (0.000-0.055) VM-Nop-S-Type Natriuretic Peptide 6163 pg/mL (0-449) Total Protein 7.1 g/dL (6.4-8.2) Albumin 3.5 g/dL (3.4-5.0) Albumin/Globulin Ratio 1.0 (1.0-1.7) Urine Collection Type Unknown Urine Color Emili Urine Clarity Cloudy Urine pH 5.0 (<5.0-8.0) Urine Specific [place] >=1.030 (1.000-1.030) Urine Protein 30 mg/dL (NEG-TRACE) Urine Glucose (UA) Negative mg/dL (NEG) Urine Ketones (Stick) 15 mg/dL (NEG) Urine Blood Negative (NEG) Urine Nitrite Negative (NEG) Urine Bilirubin Moderate (NEG) Urine Urobilinogen Dipstick 1.0 mg/dL (0.2 mg/dL) Urine Leukocyte Esterase Small (NEG) Urine RBC 0 /HPF (0-2) Urine WBC 1-4 /HPF (0-4) Urine Squamous Epithelial Cells Mod /LPF Urine Bacteria Few /HPF (0-FEW) Urine Mucus Slight /LPF SARS-CoV-2 RNA (RUBEN) Negative (Negative) SARS-CoV-2 Antigen (Rapid) Negative (NEGATIVE) Glucose (Fingerstick) 127 mg/dL (70-99) Test 05/25/21 20:47 05/26/21 07:31 05/26/21 10:35 Glucose (Fingerstick) 161 mg/dL (70-99) 92 mg/dL (70-99) 134 mg/dL (70-99) Laboratory Tests Test 05/25/21 16:58 05/25/21 20:47 05/26/21 07:31 05/26/21 10:35 Glucose (Fingerstick) 127 mg/dL (70-99) 161 mg/dL (70-99) 92 mg/dL (70-99) 134 mg/dL (70-99) Medications Active Scripts Medications Dose Route/Sig Max Daily Dose Days Date Category Carvedilol 25 Mg Tablet 25 Mg PO BIDWMEALS 05/25/21 Reported Metformin Hcl 500 Mg Tablet 500 Mg PO DAILY 05/25/21 Reported Atorvastatin Calcium 40 Mg Tablet 40 Mg PO HS 05/25/21 Reported Atacand (Candesartan Cilexetil) 4 Mg Tablet 8 Mg PO DAILY 05/25/21 Reported Zoloft (Sertraline Hcl) 100 Mg Tablet 1 Tab PO DAILY 02/20/18 Reported Impression . 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 The Ejection Fraction is 50-55%. Septal motion consistent with conduction abnormality. Otherwise, grossly normal wall motion. There is a pacemaker lead in the right ventricle. Doppler and Color Flow revealed trace tricuspid regurgitation with an estimated PAP of 55 mmHg. The ascending aorta is mildly dilated measuring 3.4 cm. EDDIE KAHN MD May 26, 2021 11:38
--- NOTE | 2021-05-26 11:43 | PDOC ---
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 History of arrhythmias History of permanent pacemaker Hypertension Diabetes Rhabdomyolysis Anxiety Osteoarthritis Diabetes History of Present Illness History of Present Illness 05/26/2021 Patient seen exam She has audible wheezing at the bedside She has some neurotic excoriations on her left leg and some bruising on her right thigh Discussed with RN Chart reviewed Discussed with case Vitals/I&O Vitals/I&O: Vital Signs Date Time Temp Pulse Resp B/P (MAP) Pulse Ox O2 Delivery O2 Flow Rate FiO2 05/26/21 11:08 98.5 71 20 127/72 (90) 96 Room Air 98.5 I & O 05/25/21 05/25/21 05/26/21 15:00 23:00 07:00 Intake Total 600 ml 0 ml Balance 600 ml 0 ml Physical Exam General: Other (Pleasantly confused) Heart: Other (Distant S1-S2) Lungs: Wheezing, Crackles, Other Abdomen: Normal bowel sounds, Other (A little distended) Extremities: No clubbing, Other (Trace edema) Skin: Other (She has some neurotic excoriations on her lower extremities and some bruising but overall no severe skin breakdown) Labs Labs: Laboratory Tests Test 05/25/21 16:58 05/25/21 20:47 05/26/21 07:31 05/26/21 10:35 Glucose (Fingerstick) 127 mg/dL (70-99) 161 mg/dL (70-99) 92 mg/dL (70-99) 134 mg/dL (70-99) Assessment and Plan Assessmemt and Plan Problems Medical Problems: (1) Congestive heart failure Status: Acute (2) Elevated brain natriuretic peptide (BNP) level Status: Acute (3) Fall Status: Acute (4) Syncope Status: Acute Found down Possible syncope Weakness Dizziness Probable asthma versus COPD Debility Mild heart failure 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 Medications: Current Medications Medications (Trade) Dose Ordered Sig/Tara Route PRN Reason Start Time Stop Time Status Last Admin Dose Admin Tramadol HCl (Ultram) 50 mg PRN Q6HRS PRN PO PAIN 05/25/21 12:30 05/26/21 09:19 Heparin Sodium (Porcine) (Heparin Sodium) 5,000 unit Q12HR SQ 05/25/21 21:00 05/26/21 09:28 Atorvastatin Calcium (Lipitor) 40 mg HS PO 05/25/21 21:00 05/25/21 21:34 Losartan Potassium (Cozaar) 50 mg DAILY PO 05/26/21 09:00 05/26/21 09:18 Carvedilol (Coreg) 25 mg BIDWMEALS PO 05/25/21 17:00 05/26/21 09:18 Sertraline HCl (Zoloft) 100 mg DAILY PO 05/26/21 09:00 05/26/21 09:18 Furosemide (Lasix) 40 mg 1X ONCE IVP 05/26/21 08:30 05/26/21 08:31 DC 05/26/21 09:17 Justifications for Admission General Conditions Other justification for admit: Syncope Other Justification LUCÍA MONTALVO III DO May 26, 2021 11:42
[2021-05-26] MEDS ORDERED: methylPREDNISolone SOD SUCC PF 40 MG/ML VIAL. IV SCH (12:30)
[2021-05-26] MEDS: IPRATRPIUM/ALBUTEROL 0.5/2.5MG 3 ML NEBU. NEB SCH ×6 (13:00→20:53)
--- NOTE | 2021-05-26 13:43 | PDOC ---
PROGRESS NOTES Date of Service: DATE: 05/26/21 TIME: 13:42 Subjective Subjective Feeling better, dyspnea improved Objective Objective Vital Signs Date Time Temp Pulse Resp B/P (MAP) Pulse Ox O2 Delivery O2 Flow Rate FiO2 05/26/21 13:05 95 Room Air 05/26/21 11:08 98.5 71 20 127/72 (90) 98.5 Intake and Output 05/26/21 07:00 Intake Total 600 ml Balance 600 ml Intake Oral 600 ml Physical Exam Abdomen: Normal bowel sounds, Other (A little distended) Heart: Other (Distant S1-S2) Extremities: No clubbing, Other (Trace edema) General: Other (Pleasantly confused) MUSCULOSKELETAL: Osteoarthritic changes both hands Skin: Other (She has some neurotic excoriations on her lower extremities and some bruising but overall no severe skin breakdown) Assessment Assessment 1. Fall; found down by family. probably mechanical. Denies any LOC. CT head without acute changes. Tele without any significant arrhythmias. 2. Mild acute on diastolic systolic CHF, better compensated. 2D echo showed normal LV systolic function. 2. 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 3. HTN: controlled 4. DM2: per IM 5. Mild rhabdomyolysis Plan Plan of Care Problems Medical Problems: (1) Congestive heart failure Status: Acute (2) Elevated brain natriuretic peptide (BNP) level Status: Acute (3) Fall Status: Acute (4) Syncope Status: Acute Comment Review of Relevant I have reviewed the following items rosamaria (where applicable) has been applied. Labs Laboratory Tests Test 05/25/21 16:58 05/25/21 20:47 05/26/21 07:31 05/26/21 10:35 Glucose (Fingerstick) 127 mg/dL (70-99) 161 mg/dL (70-99) 92 mg/dL (70-99) 134 mg/dL (70-99) Medications Current Medications Albuterol/ Ipratropium (Duoneb) 3 ml RTQID NEB Last administered on 05/26/21at 13:04; Start 05/26/21 at 12:00 Albuterol/ Ipratropium (Duoneb) 3 ml RTQID NEB ; Start 05/26/21 at 13:00 Atorvastatin Calcium (Lipitor) 40 mg HS PO Last administered on 05/25/21at 21:34; Start 05/25/21 at 21:00 Carvedilol (Coreg) 25 mg BIDWMEALS PO Last administered on 05/26/21at 09:18; Start 05/25/21 at 17:00 Furosemide (Lasix) 40 mg 1X ONCE IVP Last administered on 05/26/21at 09:17; Start 05/26/21 at 08:30; Stop 05/26/21 at 08:31; Status DC Heparin Sodium (Porcine) (Heparin Sodium) 5,000 unit Q12HR SQ Last administered on 05/26/21at 09:28; Start 05/25/21 at 21:00 Insulin Human Lispro (HumaLOG) 0-7 UNITS TIDWMEALS SQ ; Start 05/25/21 at 17:00 Losartan Potassium (Cozaar) 50 mg DAILY PO Last administered on 05/26/21at 09 :18; Start 05/26/21 at 09:00 Methylprednisolone Sodium Succinate (SOLU-Medrol 40MG VIAL) 40 mg BID IV Last administered on 05/26/21at 12:35; Start 05/26/21 at 12:30; Stop 05/26/21 at 13:03; Status DC Sertraline HCl (Zoloft) 100 mg DAILY PO Last administered on 05/26/21at 09:18; Start 05/26/21 at 09:00 Vitals/I & O Vital Sign - Last 24 Hours 05/25/21 05/25/21 05/25/21 05/25/21 14:45 16:46 18:39 19:17 Temp 97.7 97.6 97.7 97.6 Pulse 64 64 68 Resp 20 18 B/P (MAP) 115/73 (87) 115/73 99/53 (68) Pulse Ox 96 96 O2 Delivery Room Air Room Air Room Air 05/25/21 05/25/21 05/26/21 05/26/21 20:00 22:51 02:49 07:00 Temp 97.5 97.9 97.6 97.5 97.9 97.6 Pulse 65 68 71 Resp 20 22 20 B/P (MAP) 116/60 (78) 131/62 (85) 142/63 (89) Pulse Ox 98 95 92 O2 Delivery Room Air Room Air Room Air Room Air 05/26/21 05/26/21 05/26/21 05/26/21 08:00 09:18 09:18 09:19 Pulse 71 71 Resp 22 B/P (MAP) 142/63 142/63 Pulse Ox 92 O2 Delivery Room Air Room Air 05/26/21 05/26/21 05/26/21 09:45 11:08 13:05 Temp 98.5 98.5 Pulse 71 Resp 22 20 B/P (MAP) 127/72 (90) Pulse Ox 96 96 95 O2 Delivery Room Air Room Air Room Air Intake and Output 05/25/21 05/25/21 05/26/21 15:00 23:00 07:00 Intake Total 600 ml 0 ml Balance 600 ml 0 ml MATTIE DE LEÓN MD May 26, 2021 13:43
--- NOTE | 2021-05-26 13:46 | NUR ---
SS following for discharge planning. SS reviewed pt chart and discussed with pt RN. Pt is from home alone and is currently on room air. COVID19 negative. PT/OT recommended senior living unit. Pt is unvaccinated. SS met with pt to discuss discharge planning and senior living unit. Pt not agreeable at this time and stated that her son will help her at home with home healthcare. SS contacted pt's sons Solis and Melvin and discussed discharge planning. Pt's sons agreeable that pt needs to go to senior living unit. Pt's sons reported that they will come to the hospital and discuss with pt and will notify SS of there decision for senior living unit. SS provided list of senior living units to pt's sons. SS will continue to follow for discharge planning.
--- NOTE | 2021-05-26 14:47 | CONS ---
DATE OF CONSULTATION: 05/26/2021 ATTENDING PHYSICIAN: Tico Ortiz MD REASON FOR CONSULTATION: The patient is seen in pulmonary consultation at the request of Dr. Mccray for abnormal x-ray. HISTORY OF PRESENT ILLNESS: The patient is an 86-year-old female that lives on her own, is a poor historian, presented with hypertension, type 2 diabetes, hyperlipidemia, for evaluation of syncopal episode. She was found lying in the bathroom floor by family members. She reports prior episode of syncopal episodes. Not associated with chest pain, no pressure. Denies shortness of breath. She denies any acute onset of shortness of breath associated with pleuritic type of discomfort. Her x-ray was reviewed. There was cardiomegaly with vascular congestion. The patient does not know if she normally takes a water pill. She does not know her family doctor's name. She quit tobacco 30 years ago. She wears no oxygen at home. There is no history of use of metered-dose inhalers. PAST MEDICAL HISTORY: Chronic heart failure, hypertension, hyperlipidemia, anxiety, osteoarthritis, type 2 diabetes. PAST SURGICAL HISTORY: Status post pacemaker, hysterectomy. FAMILY HISTORY: Coronary artery disease. SOCIAL HISTORY: She quit tobacco 30 years ago. REVIEW OF SYSTEMS: As indicated above, otherwise other systems were reviewed and negative. ALLERGIES: PENICILLIN. CURRENT MEDICATIONS: List was reviewed. She is currently being treated with Lipitor, Coreg, furosemide, heparin subcutaneously, hydralazine, nebulized treatment, Cozaar and magnesium supplement, Solu-Medrol, Zoloft, tramadol and Ambien p.r.n. PHYSICAL EXAMINATION: GENERAL: On examination today, the patient has some audible wheezing. She was in no respiratory distress. 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 Otherwise, she is on room air, saturation 92%. LUNGS: Anteriorly were clear, posteriorly were clear. No wheezes. CARDIOVASCULAR: Regular rate and rhythm with S1, S2, no S3. ABDOMEN: Soft. EXTREMITIES: No clubbing, cyanosis or edema. LABORATORY DATA: Labs were reviewed. SARS-CoV-2 testing was negative. Chest x-ray, cardiomegaly with bilateral pulmonary infiltrates. BNP was elevated. White count was normal. IMPRESSION: 1. Progressive dyspnea secondary to acute on chronic heart failure. 2. Abnormal x-ray, compatible with cardiomegaly and congestive heart failure. 3. 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 No evidence of wheezing on exam, recommend discontinuing Steroids. 4. Other comorbidities as listed above including type 2 diabetes, hypertension and obesity. PLAN: 1. Discontinue Steroids. 2. Consult Speech for vocal cord dysphonia. 3. P.r.n. nebulized treatments. 4. Diurese. 5. Follow Cardiology input. JEFFREY/BOOM/NGA DR: Avinash TID: [id number]
[2021-05-26 15:14] VITALS: BP 113/67
[2021-05-26 19:24] VITALS: BP 114/69
[2021-05-26] MEDS: ATORVASTATIN CALCIUM 40 MG TABLET. PO SCH (20:07)
[2021-05-26 22:03] VITALS: BP 130/67
[2021-05-27 02:38] VITALS: BP 129/73
[2021-05-27 05:15] LABS: BASO % 0 % (0-3); EOS % 0 % (0-3); HEMATOCRIT 41.5 % (36.0-47.0); HEMOGLOBIN 13.2 g/dL (12.0-15.5); LYMPH # 0.7 x10^3/uL (1.0-4.8); LYMPH % 12 % (24-48); MEAN CORPUSCULAR HEMOGLOBIN 30 pg (25-35); MEAN CORPUSCULAR HGB CONC 32 g/dL (31-37); MEAN CORPUSCULAR VOLUME 94 fL (79-100); MONO # 0.4 x10^3/uL (0.0-1.1); MONO % 7 % (0-9); NEUT # 4.6 x10^3/uL (1.8-7.7); NEUT % 81 % (31-73); PLATELET COUNT 141 x10^3/uL (140-400); RED CELL DISTRIBUTION WIDTH 15.9 % (11.5-14.5); WHITE BLOOD COUNT 5.7 x10^3/uL (4.0-11.0)
[2021-05-27 05:38] LABS: CALCIUM 8.8 mg/dL (8.5-10.1); CREATININE 1.1 mg/dL (0.6-1.0); POTASSIUM 4.5 mmol/L (3.5-5.1)
[2021-05-27 07:00] VITALS: BP 175/83
[2021-05-27] MEDS: IPRATRPIUM/ALBUTEROL 0.5/2.5MG 3 ML NEBU. NEB SCH ×5 (07:16→19:36)
[2021-05-27] MEDS: INSULIN LISPRO 300 UNITS/3 ML VIAL. SQ SCH ×3 (08:00→17:00)
[2021-05-27] MEDS: LOSARTAN POTASSIUM 50 MG TABLET. PO SCH (08:22)
[2021-05-27] MEDS: CARVEDILOL 12.5 MG TABLET. PO SCH ×2 (08:22→17:10)
[2021-05-27] MEDS: SERTRALINE 50 MG TABLET. PO SCH (08:22)
[2021-05-27] MEDS: HEPARIN for SUB-Q USE 5,000 UNIT/ML VIAL. SQ SCH ×2 (08:26→21:00)
--- NOTE | 2021-05-27 09:57 | PDOC ---
PULMONARY PROGRESS NOTES DATE: 05/27/21 TIME: 09:57 Subjective Patient not more short of air, confused at times Vitals Vital Signs Date Time Temp Pulse Resp B/P (MAP) Pulse Ox O2 Delivery O2 Flow Rate FiO2 05/27/21 08:22 80 175/83 05/27/21 08:00 Room Air 05/27/21 07:16 93 05/27/21 07:00 98.5 18 98.5 ROS: No Nausea, No Chest Pain, No Abdominal Pain Lungs: Clear Cardiovascular: S1, S2 Abdomen: Soft Neuro Exam: Alert Extremities: No Edema Skin: Warm Labs Laboratory Tests Test 05/25/21 10:28 05/25/21 10:30 05/25/21 16:58 05/25/21 20:47 Urine Collection Type Unknown Urine Color Emili Urine Clarity Cloudy Urine pH 5.0 (<5.0-8.0) Urine Specific [place] >=1.030 (1.000-1.030) Urine Protein 30 mg/dL (NEG-TRACE) Urine Glucose (UA) Negative mg/dL (NEG) Urine Ketones (Stick) 15 mg/dL (NEG) Urine Blood Negative (NEG) Urine Nitrite Negative (NEG) Urine Bilirubin Moderate (NEG) Urine Urobilinogen Dipstick 1.0 mg/dL (0.2 mg/dL) Urine Leukocyte Esterase Small (NEG) Urine RBC 0 /HPF (0-2) Urine WBC 1-4 /HPF (0-4) Urine Squamous Epithelial Cells Mod /LPF Urine Bacteria Few /HPF (0-FEW) Urine Mucus Slight /LPF SARS-CoV-2 RNA (RUBEN) Negative (Negative) SARS-CoV-2 Antigen (Rapid) Negative (NEGATIVE) Glucose (Fingerstick) 127 mg/dL (70-99) 161 mg/dL (70-99) Test 05/26/21 07:31 05/26/21 10:35 05/26/21 16:49 05/26/21 21:04 Glucose (Fingerstick) 92 mg/dL (70-99) 134 mg/dL (70-99) 176 mg/dL (70-99) 189 mg/dL (70-99) Test 05/27/21 04:00 05/27/21 07:39 White Blood Count 5.7 x10^3/uL (4.0-11.0) Red Blood Count 4.40 x10^6/uL (3.50-5.40) Hemoglobin 13.2 g/dL (12.0-15.5) Hematocrit 41.5 % (36.0-47.0) Mean Corpuscular Volume 94 fL (79-100) Mean Corpuscular Hemoglobin 30 pg (25-35) Mean Corpuscular Hemoglobin Concent 32 g/dL (31-37) Red Cell Distribution Width 15.9 % (11.5-14.5) Platelet Count 141 x10^3/uL (140-400) Neutrophils (%) (Auto) 81 % (31-73) Lymphocytes (%) (Auto) 12 % (24-48) Monocytes (%) (Auto) 7 % (0-9) Eosinophils (%) (Auto) 0 % (0-3) Basophils (%) (Auto) 0 % (0-3) Neutrophils # (Auto) 4.6 x10^3/uL (1.8-7.7) Lymphocytes # (Auto) 0.7 x10^3/uL (1.0-4.8) Monocytes # (Auto) 0.4 x10^3/uL (0.0-1.1) Eosinophils # (Auto) 0.0 x10^3/uL (0.0-0.7) Basophils # (Auto) 0.0 x10^3/uL (0.0-0.2) Sodium Level 137 mmol/L (136-145) Potassium Level 4.5 mmol/L (3.5-5.1) Chloride Level 102 mmol/L (98-107) Carbon Dioxide Level 29 mmol/L (21-32) Anion Gap 6 (6-14) Blood Urea Nitrogen 27 mg/dL (7-20) Creatinine 1.1 mg/dL (0.6-1.0) Estimated GFR (Cockcroft-Gault) 57.0 Glucose Level 117 mg/dL (70-99) Calcium Level 8.8 mg/dL (8.5-10.1) Glucose (Fingerstick) 92 mg/dL (70-99) Laboratory Tests Test 05/26/21 10:35 05/26/21 16:49 05/26/21 21:04 05/27/21 04:00 Glucose (Fingerstick) 134 mg/dL (70-99) 176 mg/dL (70-99) 189 mg/dL (70-99) White Blood Count 5.7 x10^3/uL (4.0-11.0) Red Blood Count 4.40 x10^6/uL (3.50-5.40) Hemoglobin 13.2 g/dL (12.0-15.5) Hematocrit 41.5 % (36.0-47.0) Mean Corpuscular Volume 94 fL (79-100) Mean Corpuscular Hemoglobin 30 pg (25-35) Mean Corpuscular Hemoglobin Concent 32 g/dL (31-37) Red Cell Distribution Width 15.9 % (11.5-14.5) Platelet Count 141 x10^3/uL (140-400) Neutrophils (%) (Auto) 81 % (31-73) Lymphocytes (%) (Auto) 12 % (24-48) Monocytes (%) (Auto) 7 % (0-9) Eosinophils (%) (Auto) 0 % (0-3) Basophils (%) (Auto) 0 % (0-3) Neutrophils # (Auto) 4.6 x10^3/uL (1.8-7.7) Lymphocytes # (Auto) 0.7 x10^3/uL (1.0-4.8) Monocytes # (Auto) 0.4 x10^3/uL (0.0-1.1) Eosinophils # (Auto) 0.0 x10^3/uL (0.0-0.7) Basophils # (Auto) 0.0 x10^3/uL (0.0-0.2) Sodium Level 137 mmol/L (136-145) Potassium Level 4.5 mmol/L (3.5-5.1) Chloride Level 102 mmol/L (98-107) Carbon Dioxide Level 29 mmol/L (21-32) Anion Gap 6 (6-14) Blood Urea Nitrogen 27 mg/dL (7-20) Creatinine 1.1 mg/dL (0.6-1.0) Estimated GFR (Cockcroft-Gault) 57.0 Glucose Level 117 mg/dL (70-99) Calcium Level 8.8 mg/dL (8.5-10.1) Test 05/27/21 07:39 Glucose (Fingerstick) 92 mg/dL (70-99) Medications Active Scripts Medications Dose Route/Sig Max Daily Dose Days Date Category Carvedilol 25 Mg Tablet 25 Mg PO BIDWMEALS 05/25/21 Reported Metformin Hcl 500 Mg Tablet 500 Mg PO DAILY 05/25/21 Reported Atorvastatin Calcium 40 Mg Tablet 40 Mg PO HS 05/25/21 Reported Atacand (Candesartan Cilexetil) 4 Mg Tablet 8 Mg PO DAILY 05/25/21 Reported Zoloft (Sertraline Hcl) 100 Mg Tablet 1 Tab PO DAILY 02/20/18 Reported Impression . IMPRESSION: 1. Progressive dyspnea secondary to acute on chronic heart failure. 2. Abnormal x-ray, compatible with cardiomegaly and congestive heart failure. 3. 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 No evidence of wheezing on exam, recommend discontinuing Steroids. 4. Other comorbidities as listed above including type 2 diabetes, hypertension and obesity. <Conclusion> The left ventricular systolic function is normal and the ejection fraction is within normal range. The Ejection Fraction is 50-55%. Septal motion consistent with conduction abnormality. Otherwise, grossly normal wall motion. There is a pacemaker lead in the right ventricle. Doppler and Color Flow revealed trace tricuspid regurgitation with an estimated PAP of 55 mmHg. The ascending aorta is mildly dilated measuring 3.4 cm. Plan . Updated 05/27 Continue current support Speech evaluation noted Follow cardiology input PLAN: 1. Discontinue Steroids. 2. Consult Speech for vocal cord dysphonia. 3. P.r.n. nebulized treatments. 4. Diurese. 5. Follow Cardiology input. EDDIE KAHN MD May 27, 2021 09:57
[2021-05-27 11:00] VITALS: BP 124/58
--- NOTE | 2021-05-27 11:48 | PDOC ---
MORENO CARRASCO SLATE WORKER 05/27/21 1148: CARDIO Progress Notes Date and Time Date of Service 05/27/21 Time of Evaluation 1145 Subjective Subjective: No Chest Pain, No Palpitations, No Dizziness, Other (breathing improved ) Vitals Vitals Vital Signs Date Time Temp Pulse Resp B/P (MAP) Pulse Ox O2 Delivery O2 Flow Rate FiO2 05/27/21 11:16 96 Room Air 05/27/21 11:00 98.5 71 22 124/58 (80) 98.5 Weight Weight [ ] Input and Output Intake and Output Intake and Output 05/27/21 07:00 Intake Total 900 ml Output Total 700 ml Balance 200 ml Intake Oral 900 ml Output Urine Total 700 ml # Voids 3 Laboratory Labs Laboratory Tests Test 05/26/21 16:49 05/26/21 21:04 05/27/21 04:00 05/27/21 07:39 Glucose (Fingerstick) 176 mg/dL (70-99) 189 mg/dL (70-99) 92 mg/dL (70-99) White Blood Count 5.7 x10^3/uL (4.0-11.0) Red Blood Count 4.40 x10^6/uL (3.50-5.40) Hemoglobin 13.2 g/dL (12.0-15.5) Hematocrit 41.5 % (36.0-47.0) Mean Corpuscular Volume 94 fL (79-100) Mean Corpuscular Hemoglobin 30 pg (25-35) Mean Corpuscular Hemoglobin Concent 32 g/dL (31-37) Red Cell Distribution Width 15.9 % (11.5-14.5) Platelet Count 141 x10^3/uL (140-400) Neutrophils (%) (Auto) 81 % (31-73) Lymphocytes (%) (Auto) 12 % (24-48) Monocytes (%) (Auto) 7 % (0-9) Eosinophils (%) (Auto) 0 % (0-3) Basophils (%) (Auto) 0 % (0-3) Neutrophils # (Auto) 4.6 x10^3/uL (1.8-7.7) Lymphocytes # (Auto) 0.7 x10^3/uL (1.0-4.8) Monocytes # (Auto) 0.4 x10^3/uL (0.0-1.1) Eosinophils # (Auto) 0.0 x10^3/uL (0.0-0.7) Basophils # (Auto) 0.0 x10^3/uL (0.0-0.2) Sodium Level 137 mmol/L (136-145) Potassium Level 4.5 mmol/L (3.5-5.1) Chloride Level 102 mmol/L (98-107) Carbon Dioxide Level 29 mmol/L (21-32) Anion Gap 6 (6-14) Blood Urea Nitrogen 27 mg/dL (7-20) Creatinine 1.1 mg/dL (0.6-1.0) Estimated GFR (Cockcroft-Gault) 57.0 Glucose Level 117 mg/dL (70-99) Calcium Level 8.8 mg/dL (8.5-10.1) Physical Exam HEENT: Neck Supple W Full Motion Chest: Symmetric LUNGS: Other (diminished bases) Heart: RRR Abdomen: Soft N/T Extremities: No Edema Neurology: alert, follow commands Assessment Assessment 1. Fall; found down by family. probably mechanical. Denies any LOC. CT head without acute changes. Tele without any significant arrhythmias. 2. Mild acute on diastolic systolic CHF, better compensated following IV diuresis. 2D echo showed normal LV systolic function. 2. 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 Follow up with primary arterial embalmer through [facility] upon discharge 3. HTN: controlled 4. DM2: per IM 5. Mild rhabdomyolysis Justicifation of Admission Dx: Justifications for Admission: Justification of Admission Dx: Yes CHF: Hemodynamic Instability MATTIE DE LEÓN MD 05/27/212041: CARDIO Progress Notes Assessment Assessment Patient seen and examined. Agree with SOLAR INSTALLATION TECHNICIAN's assessment and plan as stated above. MORENO CARRASCO APRN May 27, 2021 11:48 MATTIE DE LEÓN MD May 27, 2021 20:42
--- NOTE | 2021-05-27 12:02 | PDOC ---
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 History of arrhythmias History of permanent pacemaker Hypertension Diabetes Rhabdomyolysis Anxiety Osteoarthritis Diabetes L BBB History of Present Illness History of Present Illness 05/27/2021 Patient seen and examined She is not wheezing audibly at the bedside anymore but still has some slight wheezing on the left with some very fine crackles On O2 per nasal cannula Pleasantly confused Afraid she is going to go to penitentiary but her senior son wants her to go to rehab and so does his brother (the sister that lives out of town wants her to go home with home health) Discussed with case management Discussed with RN Chart reviewed 05/26/2021 Patient seen exam She has audible wheezing at the bedside She has some neurotic excoriations on her left leg and some bruising on her right thigh Discussed with RN Chart reviewed Discussed with case Vitals/I&O Vitals/I&O: Vital Signs Date Time Temp Pulse Resp B/P (MAP) Pulse Ox O2 Delivery O2 Flow Rate FiO2 05/27/21 11:16 96 Room Air 05/27/21 11:00 98.5 71 22 124/58 (80) 98.5 I & O 05/26/21 05/26/21 05/27/21 15:00 23:00 07:00 Intake Total 600 ml 300 ml 0 ml Output Total 700 ml Balance 600 ml 300 ml -700 ml Physical Exam General: Other (Pleasantly confused) Heart: Other (Distant S1-S2) Lungs: Wheezing, Crackles, Other Abdomen: Normal bowel sounds, Other (A little distended) Extremities: No clubbing, Other (Trace edema) Skin: Other (She has some neurotic excoriations on her lower extremities and some bruising but overall no severe skin breakdown) Labs Labs: Laboratory Tests Test 05/26/21 16:49 05/26/21 21:04 05/27/21 04:00 05/27/21 07:39 Glucose (Fingerstick) 176 mg/dL (70-99) 189 mg/dL (70-99) 92 mg/dL (70-99) White Blood Count 5.7 x10^3/uL (4.0-11.0) Red Blood Count 4.40 x10^6/uL (3.50-5.40) Hemoglobin 13.2 g/dL (12.0-15.5) Hematocrit 41.5 % (36.0-47.0) Mean Corpuscular Volume 94 fL (79-100) Mean Corpuscular Hemoglobin 30 pg (25-35) Mean Corpuscular Hemoglobin Concent 32 g/dL (31-37) Red Cell Distribution Width 15.9 % (11.5-14.5) Platelet Count 141 x10^3/uL (140-400) Neutrophils (%) (Auto) 81 % (31-73) Lymphocytes (%) (Auto) 12 % (24-48) Monocytes (%) (Auto) 7 % (0-9) Eosinophils (%) (Auto) 0 % (0-3) Basophils (%) (Auto) 0 % (0-3) Neutrophils # (Auto) 4.6 x10^3/uL (1.8-7.7) Lymphocytes # (Auto) 0.7 x10^3/uL (1.0-4.8) Monocytes # (Auto) 0.4 x10^3/uL (0.0-1.1) Eosinophils # (Auto) 0.0 x10^3/uL (0.0-0.7) Basophils # (Auto) 0.0 x10^3/uL (0.0-0.2) Sodium Level 137 mmol/L (136-145) Potassium Level 4.5 mmol/L (3.5-5.1) Chloride Level 102 mmol/L (98-107) Carbon Dioxide Level 29 mmol/L (21-32) Anion Gap 6 (6-14) Blood Urea Nitrogen 27 mg/dL (7-20) Creatinine 1.1 mg/dL (0.6-1.0) Estimated GFR (Cockcroft-Gault) 57.0 Glucose Level 117 mg/dL (70-99) Calcium Level 8.8 mg/dL (8.5-10.1) Assessment and Plan Assessmemt and Plan Problems Medical Problems: (1) Congestive heart failure Status: Acute (2) Elevated brain natriuretic peptide (BNP) level Status: Acute (3) Fall Status: Acute (4) Syncope Status: Acute Found down Possible syncope Weakness Dizziness Probable asthma versus COPD Debility Mild heart failure 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 intake Trend labs DVT prophylaxis Full code She probably need penitentiary and/or long-term care (her senior son agrees and so does his brother but the sister does not and would prefer home) Pulmonary and cardiology following Duo nebs Steroids family services worker working on penitentiary and/or long-term care Appreciate everyone's help with this case Comment Review of Relevant I have reviewed the following items rosamaria (where applicable) has been applied. Medications: Current Medications Medications (Trade) Dose Ordered Sig/Tara Route PRN Reason Start Time Stop Time Status Last Admin Dose Admin Albuterol/ Ipratropium (Duoneb) 3 ml RTQID NEB 05/26/21 12:00 05/27/21 11:12 DC 05/27/21 07:16 Methylprednisolone Sodium Succinate (SOLU-Medrol 40MG VIAL) 40 mg BID IV 05/26/21 12:30 05/26/21 13:03 DC 05/26/21 12:35 Albuterol/ Ipratropium (Duoneb) 3 ml RTQID NEB 05/26/21 13:00 05/27/21 07:23 Levofloxacin (Levaquin) 250 mg DAILY06 PO 05/27/21 10:00 05/27/21 09:46 Justifications for Admission General Conditions Other justification for admit: Syncope Other Justification LUCÍA MONTALVO III DO May 27, 2021 12:02
--- NOTE | 2021-05-27 13:26 | NUR ---
SS following up with discharge planning. SS reviewed pt chart and discussed with pt RN. Pt is currently on room air. COVID19 negative. PO medications and diet. PT/OT recommended [facility] unit. Pt and family agreeable to [facility] unit and requesting referrals to [facility], ; fax [phone], and [facility], ; fax [phone]. Pt is unvaccinated. SS phoned and faxed referrals as requested. SS will continue to follow for discharge planning.
[2021-05-27 15:00] VITALS: BP 117/71
[2021-05-27] MEDS ORDERED: FUROSEMIDE 20 MG/2 ML VIAL. IVP ONE (16:00)
[2021-05-27 19:11] VITALS: BP 108/70
[2021-05-27] MEDS: LACTOBACILLUS RHAMNOSUS GG 1 CAPSULE. PO SCH (20:58)
[2021-05-27] MEDS: ATORVASTATIN CALCIUM 40 MG TABLET. PO SCH (20:58)
[2021-05-27 22:58] VITALS: BP 136/74
[2021-05-28 02:00] VITALS: BP 135/79
[2021-05-28 07:00] VITALS: BP 151/82
[2021-05-28] MEDS: IPRATRPIUM/ALBUTEROL 0.5/2.5MG 3 ML NEBU. NEB SCH ×2 (07:37→11:21)
[2021-05-28] MEDS: INSULIN LISPRO 300 UNITS/3 ML VIAL. SQ SCH (08:00)
[2021-05-28 08:14] LABS: BASO # 0.1 x10^3/uL (0.0-0.2); BASO % 1 % (0-3); EOS # 0.5 x10^3/uL (0.0-0.7); EOS % 5 % (0-3); HEMATOCRIT 39.7 % (36.0-47.0); HEMOGLOBIN 12.8 g/dL (12.0-15.5); LYMPH # 2.1 x10^3/uL (1.0-4.8); LYMPH % 23 % (24-48); MEAN CORPUSCULAR HEMOGLOBIN 30 pg (25-35); MEAN CORPUSCULAR HGB CONC 32 g/dL (31-37); MEAN CORPUSCULAR VOLUME 94 fL (79-100); MONO # 0.7 x10^3/uL (0.0-1.1); MONO % 8 % (0-9); NEUT # 5.6 x10^3/uL (1.8-7.7); NEUT % 63 % (31-73); PLATELET COUNT 143 x10^3/uL (140-400); RED BLOOD COUNT 4.24 x10^6/uL (3.50-5.40); RED CELL DISTRIBUTION WIDTH 15.9 % (11.5-14.5); WHITE BLOOD COUNT 8.9 x10^3/uL (4.0-11.0)
[2021-05-28] MEDS: LACTOBACILLUS RHAMNOSUS GG 1 CAPSULE. PO SCH (08:35)
[2021-05-28 08:36] VITALS: BP 151/82
[2021-05-28] MEDS: SERTRALINE 50 MG TABLET. PO SCH (08:36)
[2021-05-28] MEDS: CARVEDILOL 12.5 MG TABLET. PO SCH (08:36)
[2021-05-28] MEDS: LOSARTAN POTASSIUM 50 MG TABLET. PO SCH (08:36)
[2021-05-28 08:43] LABS: CALCIUM 8.6 mg/dL (8.5-10.1); CREATININE 0.9 mg/dL (0.6-1.0); GFR 71.8; POTASSIUM 4.4 mmol/L (3.5-5.1)
[2021-05-28] MEDS: HEPARIN for SUB-Q USE 5,000 UNIT/ML VIAL. SQ SCH (08:46)
--- NOTE | 2021-05-28 09:24 | PDOC ---
PULMONARY PROGRESS NOTES DATE: 05/28/21 TIME: 09:24 Subjective Patient not more short of air, confused at times Vitals Vital Signs Date Time Temp Pulse Resp B/P (MAP) Pulse Ox O2 Delivery O2 Flow Rate FiO2 05/28/21 08:36 70 151/82 05/28/21 07:39 99 Room Air 05/28/21 07:00 98.7 18 98.7 ROS: No Nausea, No Chest Pain, No Abdominal Pain Lungs: Clear Cardiovascular: S1, S2 Abdomen: Soft Neuro Exam: Alert Extremities: No Edema Skin: Warm Labs Laboratory Tests Test 05/26/21 10:35 05/26/21 16:49 05/26/21 21:04 05/27/21 04:00 Glucose (Fingerstick) 134 mg/dL (70-99) 176 mg/dL (70-99) 189 mg/dL (70-99) White Blood Count 5.7 x10^3/uL (4.0-11.0) Red Blood Count 4.40 x10^6/uL (3.50-5.40) Hemoglobin 13.2 g/dL (12.0-15.5) Hematocrit 41.5 % (36.0-47.0) Mean Corpuscular Volume 94 fL (79-100) Mean Corpuscular Hemoglobin 30 pg (25-35) Mean Corpuscular Hemoglobin Concent 32 g/dL (31-37) Red Cell Distribution Width 15.9 % (11.5-14.5) Platelet Count 141 x10^3/uL (140-400) Neutrophils (%) (Auto) 81 % (31-73) Lymphocytes (%) (Auto) 12 % (24-48) Monocytes (%) (Auto) 7 % (0-9) Eosinophils (%) (Auto) 0 % (0-3) Basophils (%) (Auto) 0 % (0-3) Neutrophils # (Auto) 4.6 x10^3/uL (1.8-7.7) Lymphocytes # (Auto) 0.7 x10^3/uL (1.0-4.8) Monocytes # (Auto) 0.4 x10^3/uL (0.0-1.1) Eosinophils # (Auto) 0.0 x10^3/uL (0.0-0.7) Basophils # (Auto) 0.0 x10^3/uL (0.0-0.2) Sodium Level 137 mmol/L (136-145) Potassium Level 4.5 mmol/L (3.5-5.1) Chloride Level 102 mmol/L (98-107) Carbon Dioxide Level 29 mmol/L (21-32) Anion Gap 6 (6-14) Blood Urea Nitrogen 27 mg/dL (7-20) Creatinine 1.1 mg/dL (0.6-1.0) Estimated GFR (Cockcroft-Gault) 57.0 Glucose Level 117 mg/dL (70-99) Calcium Level 8.8 mg/dL (8.5-10.1) Test 05/27/21 07:39 05/27/21 12:09 05/27/21 17:14 05/27/21 21:14 Glucose (Fingerstick) 92 mg/dL (70-99) 114 mg/dL (70-99) 127 mg/dL (70-99) 124 mg/dL (70-99) Test 05/28/21 06:40 05/28/21 07:56 White Blood Count 8.9 x10^3/uL (4.0-11.0) Red Blood Count 4.24 x10^6/uL (3.50-5.40) Hemoglobin 12.8 g/dL (12.0-15.5) Hematocrit 39.7 % (36.0-47.0) Mean Corpuscular Volume 94 fL (79-100) Mean Corpuscular Hemoglobin 30 pg (25-35) Mean Corpuscular Hemoglobin Concent 32 g/dL (31-37) Red Cell Distribution Width 15.9 % (11.5-14.5) Platelet Count 143 x10^3/uL (140-400) Neutrophils (%) (Auto) 63 % (31-73) Lymphocytes (%) (Auto) 23 % (24-48) Monocytes (%) (Auto) 8 % (0-9) Eosinophils (%) (Auto) 5 % (0-3) Basophils (%) (Auto) 1 % (0-3) Neutrophils # (Auto) 5.6 x10^3/uL (1.8-7.7) Lymphocytes # (Auto) 2.1 x10^3/uL (1.0-4.8) Monocytes # (Auto) 0.7 x10^3/uL (0.0-1.1) Eosinophils # (Auto) 0.5 x10^3/uL (0.0-0.7) Basophils # (Auto) 0.1 x10^3/uL (0.0-0.2) Sodium Level 135 mmol/L (136-145) Potassium Level 4.4 mmol/L (3.5-5.1) Chloride Level 101 mmol/L (98-107) Carbon Dioxide Level 30 mmol/L (21-32) Anion Gap 4 (6-14) Blood Urea Nitrogen 28 mg/dL (7-20) Creatinine 0.9 mg/dL (0.6-1.0) Estimated GFR (Cockcroft-Gault) 71.8 Glucose Level 89 mg/dL (70-99) Calcium Level 8.6 mg/dL (8.5-10.1) Glucose (Fingerstick) 93 mg/dL (70-99) Laboratory Tests Test 05/27/21 12:09 05/27/21 17:14 05/27/21 21:14 05/28/21 06:40 Glucose (Fingerstick) 114 mg/dL (70-99) 127 mg/dL (70-99) 124 mg/dL (70-99) White Blood Count 8.9 x10^3/uL (4.0-11.0) Red Blood Count 4.24 x10^6/uL (3.50-5.40) Hemoglobin 12.8 g/dL (12.0-15.5) Hematocrit 39.7 % (36.0-47.0) Mean Corpuscular Volume 94 fL (79-100) Mean Corpuscular Hemoglobin 30 pg (25-35) Mean Corpuscular Hemoglobin Concent 32 g/dL (31-37) Red Cell Distribution Width 15.9 % (11.5-14.5) Platelet Count 143 x10^3/uL (140-400) Neutrophils (%) (Auto) 63 % (31-73) Lymphocytes (%) (Auto) 23 % (24-48) Monocytes (%) (Auto) 8 % (0-9) Eosinophils (%) (Auto) 5 % (0-3) Basophils (%) (Auto) 1 % (0-3) Neutrophils # (Auto) 5.6 x10^3/uL (1.8-7.7) Lymphocytes # (Auto) 2.1 x10^3/uL (1.0-4.8) Monocytes # (Auto) 0.7 x10^3/uL (0.0-1.1) Eosinophils # (Auto) 0.5 x10^3/uL (0.0-0.7) Basophils # (Auto) 0.1 x10^3/uL (0.0-0.2) Sodium Level 135 mmol/L (136-145) Potassium Level 4.4 mmol/L (3.5-5.1) Chloride Level 101 mmol/L (98-107) Carbon Dioxide Level 30 mmol/L (21-32) Anion Gap 4 (6-14) Blood Urea Nitrogen 28 mg/dL (7-20) Creatinine 0.9 mg/dL (0.6-1.0) Estimated GFR (Cockcroft-Gault) 71.8 Glucose Level 89 mg/dL (70-99) Calcium Level 8.6 mg/dL (8.5-10.1) Test 05/28/21 07:56 Glucose (Fingerstick) 93 mg/dL (70-99) Medications Active Scripts Medications Dose Route/Sig Max Daily Dose Days Date Category Carvedilol 25 Mg Tablet 25 Mg PO BIDWMEALS 05/25/21 Reported Metformin Hcl 500 Mg Tablet 500 Mg PO DAILY 05/25/21 Reported Atorvastatin Calcium 40 Mg Tablet 40 Mg PO HS 05/25/21 Reported Atacand (Candesartan Cilexetil) 4 Mg Tablet 8 Mg PO DAILY 05/25/21 Reported Zoloft (Sertraline Hcl) 100 Mg Tablet 1 Tab PO DAILY 02/20/18 Reported Impression . IMPRESSION: 1. Progressive dyspnea secondary to acute on chronic heart failure. 2. Abnormal x-ray, compatible with cardiomegaly and congestive heart failure. 3. 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 No evidence of wheezing on exam, recommend discontinuing Steroids. 4. Other comorbidities as listed above including type 2 diabetes, hypertension and obesity. <Conclusion> The left ventricular systolic function is normal and the ejection fraction is within normal range. The Ejection Fraction is 50-55%. Septal motion consistent with conduction abnormality. Otherwise, grossly normal wall motion. There is a pacemaker lead in the right ventricle. Doppler and Color Flow revealed trace tricuspid regurgitation with an estimated PAP of 55 mmHg. The ascending aorta is mildly dilated measuring 3.4 cm. Plan . Updated 05/27 Continue current support Speech evaluation noted Follow cardiology input PLAN: 1. Discontinue Steroids. 2. Consult Speech for vocal cord dysphonia. 3. P.r.n. nebulized treatments. 4. Diurese. 5. Follow Cardiology input. EDDIE KAHN MD May 28, 2021 09:24
[2021-05-28] MEDS ORDERED: ACET325T21 PO (10:06)
[2021-05-28] MEDS ORDERED: LEVO250T8 PO (10:06)
[2021-05-28] MEDS ORDERED: TRAM50TA PO (10:06)
--- NOTE | 2021-05-28 10:10 | SNU/HH DC ---
DISCHARGE ORDERS DISCHARGE INFORMATION: DISCHARGE DATE: May 28, 2021 FINAL DIAGNOSIS Found down , fall and syncope Nonischemic cardiomyopathy with left bundle branch block, acute on chronic diastolic CHF weakness and Debility, acquired, History of arrhythmias History of permanent pacemaker Hypertension Diabetes type 2, Anxiety disorder Osteoarthritis Problems Medical Problems: (1) Congestive heart failure Status: Acute (2) Elevated brain natriuretic peptide (BNP) level Status: Acute (3) Fall Status: Acute (4) Syncope Status: Acute CONDITION ON DISCHARGE: Stable CODE STATUS: Code Status: Full DETENTION: SNF STAY <30 DAYS: Yes POST DISCHARGE ORDERS: ACTIVITY ORDERS: No restrictions WEIGHT BEARING STATUS: No restrictions DIET AFTER DISCHARGE: ADA CHECKS AFTER DISCHARGE: CHECKS AFTER DISCHARGE: Check blood press - daily FOLLOW-UP: PHYSICIAN FOLLOW-UP: primary care TREATMENT/EQUIPMENT ORDERS: ADAPTIVE EQUIPMENT NEEDED: Front wheeled walker Physical Therapy For: Evalulation/Treatment Occupational Therapy For: Evaluation/Treatment DISCHARGE MEDICATIONS: Home Meds Active Scripts Tramadol Hcl (TRAMADOL HCL) 50 Mg Tablet, 50 MG PO PRN Q6HRS PRN for PAIN, #30 TAB Prov:PAM CASTRO MD 05/28/21 Reported Medications Carvedilol (CARVEDILOL) 25 Mg Tablet, 25 MG PO BIDWMEALS for CARDIAC, TAB 05/25/21 Metformin Hcl (METFORMIN HCL) 500 Mg Tablet, 500 MG PO DAILY for ANTI-DIABETIC, TAB 0 Refills 05/25/21 Atorvastatin Calcium (ATORVASTATIN CALCIUM) 40 Mg Tablet, 40 MG PO HS for FOR CHOLESTEROL, #30 TAB 0 Refills 05/25/21 Candesartan Cilexetil (ATACAND) 4 Mg Tablet, 8 MG PO DAILY for blood pressure , TAB 05/25/21 Sertraline Hcl (ZOLOFT) 100 Mg Tablet, 1 TAB PO DAILY, #30 TAB 5 Refills 02/20/18 Discontinued Reported Medications Losartan Potassium (LOSARTAN POTASSIUM) 100 Mg Tablet, 100 MG PO DAILY, TAB 02/20/18 Amlodipine Besylate (AMLODIPINE BESYLATE) 2.5 Mg Tablet, 2.5 MG PO DAILY, TAB 02/20/18 Mirtazapine (MIRTAZAPINE) 15 Mg Tablet, 1 TAB PO QHS, #30 TAB 02/20/18 Carvedilol (CARVEDILOL ) 12.5 Mg Tablet, 12.5 MG PO BIDWMEALS, TAB 02/20/18 Metformin Hcl (METFORMIN HCL) 500 Mg Tablet, 500 MG PO BIDWMEALS for ANTI- DIABETIC, TAB 0 Refills 02/20/18 PAM CASTRO MD May 28, 2021 10:10
--- NOTE | 2021-05-28 10:14 | PDOC3 ---
Discharge Summary Visit Information Date of Admission: May 25, 2021 Date of Discharge: May 28, 2021 Final Diagnosis Found down , fall and syncope Nonischemic cardiomyopathy with left bundle branch block, acute on chronic diastolic CHF weakness and Debility, acquired, History of arrhythmias History of permanent pacemaker Hypertension Diabetes type 2, Anxiety disorder Osteoarthritis Problems Medical Problems: (1) Congestive heart failure Status: Acute (2) Elevated brain natriuretic peptide (BNP) level Status: Acute (3) Fall Status: Acute (4) Syncope Status: Acute Brief Hospital Course Allergies Allergies Coded Allergies Type Severity Reaction Last Updated Verified Penicillins Allergy Severe HIVES 05/25/21 Yes Vital Signs Vital Signs Date Time Temp Pulse Resp B/P (MAP) Pulse Ox O2 Delivery O2 Flow Rate FiO2 05/28/21 08:36 70 151/82 05/28/21 08:00 Room Air 05/28/21 07:39 99 05/28/21 07:00 98.7 18 98.7 Lab Results Laboratory Tests Test 05/26/21 10:35 05/26/21 16:49 05/26/21 21:04 05/27/21 04:00 Glucose (Fingerstick) 134 mg/dL (70-99) 176 mg/dL (70-99) 189 mg/dL (70-99) White Blood Count 5.7 x10^3/uL (4.0-11.0) Red Blood Count 4.40 x10^6/uL (3.50-5.40) Hemoglobin 13.2 g/dL (12.0-15.5) Hematocrit 41.5 % (36.0-47.0) Mean Corpuscular Volume 94 fL (79-100) Mean Corpuscular Hemoglobin 30 pg (25-35) Mean Corpuscular Hemoglobin Concent 32 g/dL (31-37) Red Cell Distribution Width 15.9 % (11.5-14.5) Platelet Count 141 x10^3/uL (140-400) Neutrophils (%) (Auto) 81 % (31-73) Lymphocytes (%) (Auto) 12 % (24-48) Monocytes (%) (Auto) 7 % (0-9) Eosinophils (%) (Auto) 0 % (0-3) Basophils (%) (Auto) 0 % (0-3) Neutrophils # (Auto) 4.6 x10^3/uL (1.8-7.7) Lymphocytes # (Auto) 0.7 x10^3/uL (1.0-4.8) Monocytes # (Auto) 0.4 x10^3/uL (0.0-1.1) Eosinophils # (Auto) 0.0 x10^3/uL (0.0-0.7) Basophils # (Auto) 0.0 x10^3/uL (0.0-0.2) Sodium Level 137 mmol/L (136-145) Potassium Level 4.5 mmol/L (3.5-5.1) Chloride Level 102 mmol/L (98-107) Carbon Dioxide Level 29 mmol/L (21-32) Anion Gap 6 (6-14) Blood Urea Nitrogen 27 mg/dL (7-20) Creatinine 1.1 mg/dL (0.6-1.0) Estimated GFR (Cockcroft-Gault) 57.0 Glucose Level 117 mg/dL (70-99) Calcium Level 8.8 mg/dL (8.5-10.1) Test 05/27/21 07:39 05/27/21 12:09 05/27/21 17:14 05/27/21 21:14 Glucose (Fingerstick) 92 mg/dL (70-99) 114 mg/dL (70-99) 127 mg/dL (70-99) 124 mg/dL (70-99) Test 05/28/21 06:40 05/28/21 07:56 White Blood Count 8.9 x10^3/uL (4.0-11.0) Red Blood Count 4.24 x10^6/uL (3.50-5.40) Hemoglobin 12.8 g/dL (12.0-15.5) Hematocrit 39.7 % (36.0-47.0) Mean Corpuscular Volume 94 fL (79-100) Mean Corpuscular Hemoglobin 30 pg (25-35) Mean Corpuscular Hemoglobin Concent 32 g/dL (31-37) Red Cell Distribution Width 15.9 % (11.5-14.5) Platelet Count 143 x10^3/uL (140-400) Neutrophils (%) (Auto) 63 % (31-73) Lymphocytes (%) (Auto) 23 % (24-48) Monocytes (%) (Auto) 8 % (0-9) Eosinophils (%) (Auto) 5 % (0-3) Basophils (%) (Auto) 1 % (0-3) Neutrophils # (Auto) 5.6 x10^3/uL (1.8-7.7) Lymphocytes # (Auto) 2.1 x10^3/uL (1.0-4.8) Monocytes # (Auto) 0.7 x10^3/uL (0.0-1.1) Eosinophils # (Auto) 0.5 x10^3/uL (0.0-0.7) Basophils # (Auto) 0.1 x10^3/uL (0.0-0.2) Sodium Level 135 mmol/L (136-145) Potassium Level 4.4 mmol/L (3.5-5.1) Chloride Level 101 mmol/L (98-107) Carbon Dioxide Level 30 mmol/L (21-32) Anion Gap 4 (6-14) Blood Urea Nitrogen 28 mg/dL (7-20) Creatinine 0.9 mg/dL (0.6-1.0) Estimated GFR (Cockcroft-Gault) 71.8 Glucose Level 89 mg/dL (70-99) Calcium Level 8.6 mg/dL (8.5-10.1) Glucose (Fingerstick) 93 mg/dL (70-99) Laboratory Tests Test 05/27/21 12:09 05/27/21 17:14 05/27/21 21:14 05/28/21 06:40 Glucose (Fingerstick) 114 mg/dL (70-99) 127 mg/dL (70-99) 124 mg/dL (70-99) White Blood Count 8.9 x10^3/uL (4.0-11.0) Red Blood Count 4.24 x10^6/uL (3.50-5.40) Hemoglobin 12.8 g/dL (12.0-15.5) Hematocrit 39.7 % (36.0-47.0) Mean Corpuscular Volume 94 fL (79-100) Mean Corpuscular Hemoglobin 30 pg (25-35) Mean Corpuscular Hemoglobin Concent 32 g/dL (31-37) Red Cell Distribution Width 15.9 % (11.5-14.5) Platelet Count 143 x10^3/uL (140-400) Neutrophils (%) (Auto) 63 % (31-73) Lymphocytes (%) (Auto) 23 % (24-48) Monocytes (%) (Auto) 8 % (0-9) Eosinophils (%) (Auto) 5 % (0-3) Basophils (%) (Auto) 1 % (0-3) Neutrophils # (Auto) 5.6 x10^3/uL (1.8-7.7) Lymphocytes # (Auto) 2.1 x10^3/uL (1.0-4.8) Monocytes # (Auto) 0.7 x10^3/uL (0.0-1.1) Eosinophils # (Auto) 0.5 x10^3/uL (0.0-0.7) Basophils # (Auto) 0.1 x10^3/uL (0.0-0.2) Sodium Level 135 mmol/L (136-145) Potassium Level 4.4 mmol/L (3.5-5.1) Chloride Level 101 mmol/L (98-107) Carbon Dioxide Level 30 mmol/L (21-32) Anion Gap 4 (6-14) Blood Urea Nitrogen 28 mg/dL (7-20) Creatinine 0.9 mg/dL (0.6-1.0) Estimated GFR (Cockcroft-Gault) 71.8 Glucose Level 89 mg/dL (70-99) Calcium Level 8.6 mg/dL (8.5-10.1) Test 05/28/21 07:56 Glucose (Fingerstick) 93 mg/dL (70-99) Brief Hospital Course Ms. Izaguirre is a 86 old female that lives on her own, is pleasantly c onfused at baseline, mild cognitive deficit , presented with hypertension, type 2 diabetes, hyperlipidemia, for evaluation of syncopal episode. She was found lying in the bathroom floor by family members. She reports prior episode of syncopal episodes. Not associated with chest pain, no pressure. Discharge Information Condition at Discharge: Improved Disposition/Orders: D/C to Another Facility (skilled) Scheduled Atorvastatin Calcium (Atorvastatin Calcium) 40 Mg Tablet, 40 MG PO HS for FOR CHOLESTEROL, #30 Ref 0 (Reported) Entered as Reported by: ALMA RUBI RN on 05/25/21 1116 Last Taken: Unknown Dose on 05/25/21 Last Action: Continued on 05/25/211520 by MALA CONDE MD Candesartan Cilexetil (Atacand) 4 Mg Tablet, 8 MG PO DAILY for blood pressure , (Reported) Entered as Reported by: ALMA RUBI RN on 05/25/211115 Last Taken: Unknown Dose on 05/25/21 Last Action: Converted on 05/25/211520 by MALA CONDE MD Carvedilol (Carvedilol) 25 Mg Tablet, 25 MG PO BIDWMEALS for CARDIAC, (Reported) Entered as Reported by: ALMA RUBI RN on 05/25/211115 Last Taken: Unknown Dose on 05/25/21 Last Action: Converted on 05/25/211520 by MALA CONDE MD Metformin Hcl (Metformin Hcl) 500 Mg Tablet, 500 MG PO DAILY for ANTI-DIABETIC, Ref 0 (Reported) Entered as Reported by: ALMA RUBI RN on 05/25/211115 Last Taken: Unknown Dose on 05/25/21 Last Action: New Order on 05/25/211115 by ALMA RUBI RN Sertraline Hcl (Zoloft) 100 Mg Tablet, 1 TAB PO DAILY, #30 Ref 5 (Reported) Entered as Reported by: Kelton Hoover on 02/20/181853 Last Action: Converted on 05/25/211520 by MALA CONDE MD Scheduled PRN Tramadol Hcl (Tramadol Hcl) 50 Mg Tablet, 50 MG PO PRN Q6HRS PRN for PAIN, #30 Prescribed by: PAM CASTRO on 05/28/21 1007 Discontinued Medications Amlodipine Besylate (Amlodipine Besylate) 2.5 Mg Tablet, 2.5 MG PO DAILY, (Reported) Entered as Reported by: Kelton Hoover on 02/20/181853 Last Action: Discontinued on 05/25/211115 by ALMA RUBI RN Carvedilol (Carvedilol ) 12.5 Mg Tablet, 12.5 MG PO BIDWMEALS, (Reported) Entered as Reported by: Kelton Hoover on 02/20/181853 Last Action: Discontinued on 05/25/211115 by ALMA RUBI RN Losartan Potassium (Losartan Potassium) 100 Mg Tablet, 100 MG PO DAILY, (Reported) Entered as Reported by: Kelton Hoover on 02/20/181853 Last Action: Discontinued on 05/25/211115 by ALMA RUBI RN Metformin Hcl (Metformin Hcl) 500 Mg Tablet, 500 MG PO BIDWMEALS for ANTI-DI ABETIC, Ref 0 (Reported) Entered as Reported by: Kelton Hoover on 02/20/181853 Last Action: Discontinued on 05/25/211115 by ALMA RUBI RN Mirtazapine (Mirtazapine) 15 Mg Tablet, 1 TAB PO QHS, #30 (Reported) Entered as Reported by: Kelton Hoover on 02/20/181853 Last Action: Discontinued on 05/25/211115 by ALMA RUBI RN Patient Instructions Patient Instructions face to face > 30 min Justicifation of Admission Dx: Justifications for Admission: Justification of Admission Dx: Yes CHF: Hemodynamic Instability PAM CASTRO MD May 28, 2021 10:14
--- NOTE | 2021-05-28 10:56 | NUR ---
SS following up with discharge planning. SS reviewed pt chart and discussed with pt RN. Pt is currently on room air. COVID19 negative. PT/OT recommended retirement unit. Pt accepted at [facility], ; fax [phone]. Insurance authorization approved. Discharge orders phoned and faxed to [facility]. Pt will discharge today and go to [facility] at 1200 via [facility] transport, [id number]. Pt, pt's RN, and pt's sons notified. Packet placed on chart.
--- NOTE | 2021-05-28 12:18 | NUR ---
Discharge Note: SHANNON ORDOÑEZ [address] [place] [address] Discharge instructions and discharge home medications reviewed with Other facility and a copy given. All questions have been answered and understanding verbalized. The following instructions and handouts were given: discharge instructions, med list, CHF education, fall/safety education Discontinued lines and drains: Peripheral IV intact. Patient discharged to Nursing Home Facility ([facility]) with transportation via Wheelchair at 1218.
== END 2021-05-28 12:15 | DRG 291 ==
LOC: ER 08:26 → 6 SOUTH 10:40
PROVIDERS: ADMIT Family Medicine; ATTEND Family Medicine
DX: I11.0 Hypertensive heart disease with heart failure (principal); I50.43 Acute on chronic combined systolic (congestive) and diastolic (congestive) heart failure; M62.82 Rhabdomyolysis; I95.1 Orthostatic hypotension; I42.8 Other cardiomyopathies; E11.9 Type 2 diabetes mellitus without complications; E66.9 Obesity, unspecified; Z68.33 Body mass index [BMI] 33.0-33.9, adult; E78.00 Pure hypercholesterolemia, unspecified; E78.5 Hyperlipidemia, unspecified; F41.9 Anxiety disorder, unspecified; R79.89 Other specified abnormal findings of blood chemistry; I44.7 Left bundle-branch block, unspecified; M17.12 Unilateral primary osteoarthritis, left knee; Z79.84 Long term (current) use of oral hypoglycemic drugs; Z79.899 Other long term (current) drug therapy; Z82.49 Family history of ischemic heart disease and other diseases of the circulatory system; Z87.891 Personal history of nicotine dependence; Z90.710 Acquired absence of both cervix and uterus; Z95.0 Presence of cardiac pacemaker; Z88.0 Allergy status to penicillin; Z60.2 Problems related to living alone
CPT/HCPCS: 36415; 70450; 71045; 72125; 73564; 80048; 80053; 81001; 82553; 82962; 83605; 83735; 83880; 84100; 84484; 85025; 87086; 87426; 93005; 93306; 94640; 94760; J1644; J1815; J1940; J2920; U0003; U0005; 92526-GN; 92610-GN; 97116-GP; 97535-GO; 99285-25; G0378